=== PATIENT | male | born 1935 | race Caucasian/White ===

== ENCOUNTER 2017-10-30 09:55 | Inpatient (IN) | payer MEDICARE, OTHER ==
[~2017-10-30] VITALS: Ht 180.3 cm; Wt 92.7 kg
[~2017-10-30 09:55] MED LIST: ALBU8HFA PO; ATEN25TA PO; CIPR-230 PO; DABI150C PO; FINA5TAB11 PO; FOLI1TAB16 PO; GLIP5TAB13 PO; HYDR-569 PO; ISOS60TA4 PO; LOPE2CAP PO; MESA0.37 PO; OMEP20CA10 PO; TERA2CAP4 PO
[2017-10-30 10:12] LABS: BASOPHILS % (AUTO) 0.4 % (0-1); EOSINOPHILS # (AUTO) 0.4 X10'3 (0-0.9); EOSINOPHILS % (AUTO) 4.1 % (0-6); HEMATOCRIT 43.5 % (42.0-52.0); HEMOGLOBIN 14.6 g/dl (14.0-17.9); LYMPHOCYTES # (AUTO) 2.2 X10'3 (1.1-4.8); LYMPHOCYTES % (AUTO) 20.3 % (21-51); MEAN CORPUSCULAR HEMOGLOBIN 31.8 PG (27.0-31.0); MEAN CORPUSCULAR HGB CONC 33.5 % (33.0-36.5); MEAN CORPUSCULAR VOLUME 94.8 FL (78-98); MEAN PLATELET VOLUME 8.1 FL (7.4-10.4); MONOCYTES # (AUTO) 0.8 X10'3 (0-0.9); MONOCYTES % (AUTO) 7.8 % (2-12); NEUTROPHILS # (AUTO) 7.2 X10'3 (1.8-7.7); NEUTROPHILS % (AUTO) 67.4 % (42-75); PLATELET COUNT 242 X10'3 (140-440); RED BLOOD COUNT 4.59 X10'6 (4.70-6.10); RED CELL DISTRIBUTION WIDTH 15.5 % (11.5-14.5); WHITE BLOOD COUNT 10.7 X10'3 (4.5-11.0)
[2017-10-30 10:23] LABS: PARTIAL THROMBOPLASTIN TIME 30 SECONDS (22-32); PROTHROMBIN TIME 10.7 SECONDS (9.0-12.0)
[2017-10-30 10:28] LABS: ALANINE AMINOTRANSFERASE 14 U/L (12-78); ALBUMIN 3.4 G/DL (3.4-5.0); ALBUMIN/GLOBULIN RATIO 0.9 (1.1-1.5); ALKALINE PHOSPHATASE 97 IU/L (46-116); ANION GAP 8 (8-16); ASPARTATE AMINO TRANSFERASE 14 U/L (10-37); BILIRUBIN,TOTAL 0.5 MG/DL (0.1-1.0); BLOOD UREA NITROGEN 13 MG/DL (7-18); BUN/CREATININE RATIO 15.3 (5.4-32.0); CALCIUM 8.7 MG/DL (8.5-10.1); CHLORIDE 109 MMOL/L (99-107); CREATININE 0.85 MG/DL (0.60-1.10); GLUCOSE 131 MG/DL (70-104); SODIUM 142 MMOL/L (135-145); TOTAL CARBON DIOXIDE 25.3 MMOL/L (24-32); TOTAL PROTEIN 7.1 G/DL (6.4-8.2); eGFR 86 ML/MIN
[2017-10-30] MEDS ORDERED: acetaminophen 325mg tablet PO PRN ×2 (11:10)
[2017-10-30] MEDS ORDERED: magnesium 2GM in 50ml NS 50 ML IV PRN (11:10)
[2017-10-30] MEDS ORDERED: magnesium 4gm in 100ml NS 100 ML IV PRN (11:10)
[2017-10-30] MEDS ORDERED: mag hydrox/Alum hydrox/simeth 30ml oral suspension PO PRN (11:10)
[2017-10-30] MEDS ORDERED: potassium Cl 40MEQ/NS 500ml 500 ML IV PRN ×2 (11:10)
[2017-10-30] MEDS ORDERED: bisacodyl 10mg suppository rectal RC PRN (11:10)
[2017-10-30] MEDS ORDERED: ondansetron/PF 4mg/2ml inj IV PRN (11:10)
[2017-10-30] MEDS ORDERED: potassium Cl 20 mEq SR tablet PO PRN ×2 (11:10)
[2017-10-30] MEDS ORDERED: regadenoson 0.4mg/5ml syringe IV PRN (12:10)
[2017-10-30] MEDS ORDERED: nitroGLYCERIN 0.4mg SUBLingual tab SL PRN (12:10)
[2017-10-30] MEDS ORDERED: CAFFEINE CITRATE 60 MG/3 ML injection vial IV PRN (12:10)
[2017-10-30] MEDS ORDERED: metoprolol tartrate 1mg/ml inj IV PRN (12:10)
[2017-10-30] MEDS ORDERED: dextrose ORAL solution 15 GM/59 ML bottle PO PRN ×2 (12:30)
[2017-10-30] MEDS ORDERED: insulin Lispro (HumaLOG) vial - multi-dose SQ SCH (12:30)
[2017-10-30] MEDS ORDERED: MESSAGE TO PHARMACY PO ONE (12:30)
[2017-10-30] MEDS ORDERED: dextrose 50%-water 50ml dispensing syringe IV PRN ×2 (12:30)
[2017-10-30] MEDS ORDERED: glucagon, human recombinant 1mg kit SUBCUT PRN (12:30)
[2017-10-30 13:31] LABS: HEMOGLOBIN A1C 6.2 % (4.5-6.2)
[2017-10-30] MEDS ORDERED: nitroGLYCERIN 1gm ointment UD TP ONE (18:05)
[2017-10-30] MEDS ORDERED: heparin 10,000 units/1 ML INJ IV ONE (18:15)
[2017-10-30] MEDS ORDERED: heparin 10,000 units/1 ML INJ IV PRN ×2 (18:15→23:20)
[2017-10-30] MEDS ORDERED: dabigatran 150mg capsule PO SCH (20:00)
[2017-10-30] MEDS: insulin glargine (Lantus) pen - multi-dose SQ SCH (21:00)
[2017-10-30] MEDS: Terazosin 1mg capsule PO SCH (21:19)
[2017-10-30 22:00] VITALS: BP 128/99
[2017-10-30] MEDS ORDERED: clopidogrel 300mg tablet PO ONE (23:10)
[2017-10-31] VITALS (14 sets, daily range): BP systolic 105–141; BP diastolic 53–88
[2017-10-31] MEDS ORDERED: clopidogrel 75mg tablet PO SCH (00:40)
[2017-10-31 04:35] LABS: BASOPHILS % (AUTO) 0.4 % (0-1); EOSINOPHILS # (AUTO) 0.4 X10'3 (0-0.9); EOSINOPHILS % (AUTO) 4.4 % (0-6); HEMATOCRIT 39.2 % (42.0-52.0); HEMOGLOBIN 13.3 g/dl (14.0-17.9); LYMPHOCYTES # (AUTO) 2.6 X10'3 (1.1-4.8); LYMPHOCYTES % (AUTO) 27.8 % (21-51); MEAN CORPUSCULAR HGB CONC 33.9 % (33.0-36.5); MEAN CORPUSCULAR VOLUME 94.3 FL (78-98); MEAN PLATELET VOLUME 8.1 FL (7.4-10.4); MONOCYTES # (AUTO) 0.7 X10'3 (0-0.9); MONOCYTES % (AUTO) 7.3 % (2-12); NEUTROPHILS # (AUTO) 5.7 X10'3 (1.8-7.7); NEUTROPHILS % (AUTO) 60.1 % (42-75); PLATELET COUNT 225 X10'3 (140-440); RED BLOOD COUNT 4.16 X10'6 (4.70-6.10); RED CELL DISTRIBUTION WIDTH 15.2 % (11.5-14.5); WHITE BLOOD COUNT 9.5 X10'3 (4.5-11.0)
[2017-10-31 04:51] LABS: ALANINE AMINOTRANSFERASE 14 U/L (12-78); ALBUMIN/GLOBULIN RATIO 0.9 (1.1-1.5); ALKALINE PHOSPHATASE 80 IU/L (46-116); ANION GAP 10 (8-16); ASPARTATE AMINO TRANSFERASE 21 U/L (10-37); BILIRUBIN,TOTAL 0.6 MG/DL (0.1-1.0); BLOOD UREA NITROGEN 13 MG/DL (7-18); BUN/CREATININE RATIO 14.9 (5.4-32.0); CALCIUM 8.2 MG/DL (8.5-10.1); CHLORIDE 107 MMOL/L (99-107); CHOL/HDL RATIO 2.9 (0.00-4.99); CHOLESTEROL 145 MG/DL (0-200); CREATININE 0.87 MG/DL (0.60-1.10); GLUCOSE 111 MG/DL (70-104); HDL CHOLESTEROL 50 MG/DL (35-60); LDL CHOLESTEROL 82 MG/DL (50-100); POTASSIUM 3.6 MMOL/L (3.5-5.1); SODIUM 141 MMOL/L (135-145); TOTAL CARBON DIOXIDE 24.4 MMOL/L (24-32); TOTAL PROTEIN 6.5 G/DL (6.4-8.2); TRIGLYCERIDES 83 MG/DL (20-135); eGFR 84 ML/MIN
[2017-10-31 05:48] LABS: TROPONIN I 1.84 NG/ML (0.0-0.05)
[2017-10-31] MEDS: isosorbide mononitrate 30mg tab.SR.24H PO SCH (07:19)
[2017-10-31] MEDS: finasteride 5mg tablet PO SCH (07:19)
[2017-10-31] MEDS: atenolol 25mg tablet PO SCH (07:19)
[2017-10-31] MEDS: pantoprazole 40mg Tablet.DR PO SCH (07:19)
[2017-10-31] MEDS: folic acid 1mg tablet PO SCH (07:19)
[2017-10-31] MEDS: mesalamine 400mg delayed-release capsule PO SCH (07:19)
[2017-10-31] MEDS: K and/or MAG REPLACEMENT MC SCH (08:00)
[2017-10-31] MEDS ORDERED: regadenoson 0.4mg/5ml syringe IV ONE (09:09)
[2017-10-31] MEDS ORDERED: CAFFEINE CITRATE 60 MG/3 ML injection vial IV ONE (09:09)
[2017-10-31 15:41] LABS: TROPONIN I 0.94 NG/ML (0.0-0.05)
[2017-10-31] MEDS: insulin glargine (Lantus) pen - multi-dose SQ SCH (21:00)
[2017-10-31] MEDS: Terazosin 1mg capsule PO SCH (21:17)
[2017-11-01 01:54] LABS: BASOPHILS % (AUTO) 0.5 % (0-1); EOSINOPHILS # (AUTO) 0.4 X10'3 (0-0.9); EOSINOPHILS % (AUTO) 4.9 % (0-6); HEMATOCRIT 40.7 % (42.0-52.0); HEMOGLOBIN 13.7 g/dl (14.0-17.9); LYMPHOCYTES # (AUTO) 2.6 X10'3 (1.1-4.8); LYMPHOCYTES % (AUTO) 29.9 % (21-51); MEAN CORPUSCULAR HGB CONC 33.7 % (33.0-36.5); MEAN PLATELET VOLUME 8.6 FL (7.4-10.4); MONOCYTES # (AUTO) 0.6 X10'3 (0-0.9); MONOCYTES % (AUTO) 7.1 % (2-12); NEUTROPHILS % (AUTO) 57.6 % (42-75); PLATELET COUNT 245 X10'3 (140-440); RED BLOOD COUNT 4.29 X10'6 (4.70-6.10); RED CELL DISTRIBUTION WIDTH 14.9 % (11.5-14.5); WHITE BLOOD COUNT 8.6 X10'3 (4.5-11.0)
[2017-11-01 01:59] LABS: ALANINE AMINOTRANSFERASE 14 U/L (12-78); ALBUMIN 3.1 G/DL (3.4-5.0); ALBUMIN/GLOBULIN RATIO 0.9 (1.1-1.5); ALKALINE PHOSPHATASE 82 IU/L (46-116); ANION GAP 9 (8-16); ASPARTATE AMINO TRANSFERASE 23 U/L (10-37); BILIRUBIN,TOTAL 0.5 MG/DL (0.1-1.0); BLOOD UREA NITROGEN 12 MG/DL (7-18); CALCIUM 8.3 MG/DL (8.5-10.1); CHLORIDE 106 MMOL/L (99-107); GLUCOSE 99 MG/DL (70-104); PHOSPHORUS 2.7 MG/DL (2.3-4.5); POTASSIUM 3.7 MMOL/L (3.5-5.1); SODIUM 142 MMOL/L (135-145); TOTAL CARBON DIOXIDE 26.8 MMOL/L (24-32); TOTAL PROTEIN 6.7 G/DL (6.4-8.2); eGFR > 90 ML/MIN
[2017-11-01 03:00] VITALS: BP 142/83
[2017-11-01] MEDS: K and/or MAG REPLACEMENT MC SCH (06:54)
[2017-11-01 07:00] VITALS: BP 138/75
[2017-11-01] MEDS: mesalamine 400mg delayed-release capsule PO SCH (07:22)
[2017-11-01] MEDS: finasteride 5mg tablet PO SCH (07:23)
[2017-11-01] MEDS: atenolol 25mg tablet PO SCH (07:23)
[2017-11-01] MEDS: isosorbide mononitrate 30mg tab.SR.24H PO SCH (07:23)
[2017-11-01] MEDS: pantoprazole 40mg Tablet.DR PO SCH (07:23)
[2017-11-01] MEDS: folic acid 1mg tablet PO SCH (07:23)
[2017-11-01] MEDS ORDERED: atorvastatin 20mg tablet PO SCH (08:00)
[2017-11-01 11:00] VITALS: BP 117/64
== END 2017-11-01 15:15 | disposition home health service (06) | DRG 303 ==
LOC: ER 09:55 → ED HOLD 11:07 → EDBEDREQ 21:32 → PCU 3S 22:14
PROVIDERS: ADMIT Family Medicine; ATTEND Internal Medicine
PROC: 4A02XM4 Measurement of Cardiac Total Activity, External Approach (ICD-10-PCS; principal; 2017-10-31)
PROC: 3E073KZ Introduction of Other Diagnostic Substance into Coronary Artery, Percutaneous Approach (ICD-10-PCS; 2017-10-31)
DX: I25.110 Atherosclerotic heart disease of native coronary artery with unstable angina pectoris (principal); E11.51 Type 2 diabetes mellitus with diabetic peripheral angiopathy without gangrene; I24.9 Acute ischemic heart disease, unspecified; K50.90 Crohn's disease, unspecified, without complications; I48.2 Chronic atrial fibrillation; I25.2 Old myocardial infarction; H26.9 Unspecified cataract; I10 Essential (primary) hypertension; E11.9 Type 2 diabetes mellitus without complications; J44.9 Chronic obstructive pulmonary disease, unspecified; Z80.0 Family history of malignant neoplasm of digestive organs; Z82.0 Family history of epilepsy and other diseases of the nervous system; Z87.891 Personal history of nicotine dependence; Z95.5 Presence of coronary angioplasty implant and graft
CPT/HCPCS: 36415; 71045; 78452; 80053; 80061; 82553; 82948; 83036; 83735; 84100; 84484; 85025; 85610; 85730; 87070; 93005; 93017; 93306; 97116; 97161; 97530; 99285; A9500; J1644; J1815

== ENCOUNTER 2017-11-07 17:22 | Emergency (ER) | payer MEDICARE, OTHER ==
[~2017-11-07] VITALS: Ht 180.3 cm; Wt 98.0 kg
[~2017-11-07 17:22] MED LIST changes: -CIPR-230 PO; -GLIP5TAB13 PO
[2017-11-07 19:16] LABS: BASOPHILS # (AUTO) 0.1 X10'3 (0-0.2); BASOPHILS % (AUTO) 0.7 % (0-1); EOSINOPHILS # (AUTO) 0.4 X10'3 (0-0.9); EOSINOPHILS % (AUTO) 5.4 % (0-6); HEMATOCRIT 43.3 % (42.0-52.0); HEMOGLOBIN 14.5 g/dl (14.0-17.9); LYMPHOCYTES # (AUTO) 2.6 X10'3 (1.1-4.8); LYMPHOCYTES % (AUTO) 37.2 % (21-51); MEAN CORPUSCULAR HEMOGLOBIN 31.8 PG (27.0-31.0); MEAN CORPUSCULAR HGB CONC 33.4 % (33.0-36.5); MEAN CORPUSCULAR VOLUME 95.3 FL (78-98); MEAN PLATELET VOLUME 7.7 FL (7.4-10.4); MONOCYTES # (AUTO) 0.6 X10'3 (0-0.9); MONOCYTES % (AUTO) 7.9 % (2-12); NEUTROPHILS # (AUTO) 3.4 X10'3 (1.8-7.7); NEUTROPHILS % (AUTO) 48.8 % (42-75); PLATELET COUNT 269 X10'3 (140-440); RED BLOOD COUNT 4.55 X10'6 (4.70-6.10)
[2017-11-07 19:26] LABS: INR 1.1 INR; PARTIAL THROMBOPLASTIN TIME 32 SECONDS (22-32); PROTHROMBIN TIME 11.3 SECONDS (9.0-12.0)
[2017-11-07 19:33] LABS: ANION GAP 6 (8-16); BLOOD UREA NITROGEN 10 MG/DL (7-18); BUN/CREATININE RATIO 11.1 (5.4-32.0); CHLORIDE 107 MMOL/L (99-107); GLUCOSE 105 MG/DL (70-104); POTASSIUM 3.8 MMOL/L (3.5-5.1); SODIUM 143 MMOL/L (135-145); TOTAL CARBON DIOXIDE 30.2 MMOL/L (24-32)
[2017-11-07 19:34] LABS: ALANINE AMINOTRANSFERASE 19 U/L (12-78); ALBUMIN 3.6 G/DL (3.4-5.0); ALBUMIN/GLOBULIN RATIO 0.9 (1.1-1.5); ALKALINE PHOSPHATASE 84 IU/L (46-116); ASPARTATE AMINO TRANSFERASE 20 U/L (10-37); BILIRUBIN,TOTAL 0.4 MG/DL (0.1-1.0); CALCIUM 9.2 MG/DL (8.5-10.1); TOTAL PROTEIN 7.7 G/DL (6.4-8.2); eGFR 81 ML/MIN
[2017-11-07 21:02] VITALS: BP 138/80
== END 2017-11-07 21:19 | disposition home or self-care (01) ==
LOC: ER 17:23
DX: I83.91 Asymptomatic varicose veins of right lower extremity (principal); I48.91 Unspecified atrial fibrillation; I25.10 Atherosclerotic heart disease of native coronary artery without angina pectoris; I10 Essential (primary) hypertension; I25.2 Old myocardial infarction; E11.9 Type 2 diabetes mellitus without complications; J44.9 Chronic obstructive pulmonary disease, unspecified; F17.210 Nicotine dependence, cigarettes, uncomplicated; Z95.0 Presence of cardiac pacemaker; Z79.899 Other long term (current) drug therapy
CPT/HCPCS: 36415; 80053; 85025; 85610; 85730; 93971; 99285

== ENCOUNTER 2018-02-25 16:25 | Inpatient (IN) | payer MEDICARE, OTHER ==
[~2018-02-25] VITALS: Ht 180.3 cm; Wt 91.8 kg
[2018-02-25] MEDS ORDERED: normal saline 1000ML IV soln IVB ONE (16:55)
[2018-02-25] MEDS ORDERED: methylnaltrexone br 12mg/0.6ml inj***SubQ only SQ ONE (16:55)
[2018-02-25 17:25] LABS: BASOPHILS % (AUTO) 0.2 % (0-1); EOSINOPHILS # (AUTO) 0.2 X10'3 (0-0.9); EOSINOPHILS % (AUTO) 1.4 % (0-6); HEMATOCRIT 47.5 % (42.0-52.0); HEMOGLOBIN 15.5 g/dl (14.0-17.9); LYMPHOCYTES # (AUTO) 1.4 X10'3 (1.1-4.8); LYMPHOCYTES % (AUTO) 10.3 % (21-51); MEAN CORPUSCULAR HEMOGLOBIN 30.8 PG (27.0-31.0); MEAN CORPUSCULAR HGB CONC 32.7 % (33.0-36.5); MEAN CORPUSCULAR VOLUME 94.3 FL (78-98); MEAN PLATELET VOLUME 8.5 FL (7.4-10.4); MONOCYTES # (AUTO) 0.5 X10'3 (0-0.9); MONOCYTES % (AUTO) 3.5 % (2-12); NEUTROPHILS # (AUTO) 11.4 X10'3 (1.8-7.7); NEUTROPHILS % (AUTO) 84.6 % (42-75); PLATELET COUNT 231 X10'3 (140-440); RED BLOOD COUNT 5.04 X10'6 (4.70-6.10); WHITE BLOOD COUNT 13.4 X10'3 (4.5-11.0)
[2018-02-25 17:40] LABS: ALANINE AMINOTRANSFERASE 28 U/L (12-78); ALBUMIN 3.8 G/DL (3.4-5.0); ALKALINE PHOSPHATASE 103 IU/L (46-116); ANION GAP 8 (8-16); ASPARTATE AMINO TRANSFERASE 25 U/L (10-37); BILIRUBIN,TOTAL 0.6 MG/DL (0.1-1.0); BLOOD UREA NITROGEN 20 MG/DL (7-18); BUN/CREATININE RATIO 19.6 (5.4-32.0); CALCIUM 9.4 MG/DL (8.5-10.1); CHLORIDE 105 MMOL/L (99-107); CREATININE 1.02 MG/DL (0.60-1.10); GLUCOSE 137 MG/DL (70-104); LIPASE 144 U/L (73-393); POTASSIUM 3.8 MMOL/L (3.5-5.1); SODIUM 141 MMOL/L (135-145); TOTAL CARBON DIOXIDE 27.8 MMOL/L (24-32); TOTAL PROTEIN 7.7 G/DL (6.4-8.2); eGFR 70 ML/MIN
[2018-02-25] MEDS ORDERED: iohexol 300mg/ml 100ml inj. ONE (17:45)
[2018-02-25 18:43] LABS: CLARITY,URINE CLEAR (Clear); COLOR,URINE YELLOW (Yellow); GLUCOSE, URINE NEGATIVE (Neg); KETONES,URINE NEGATIVE (Neg); LEUKOCYTE ESTERASE ,URINE NEGATIVE (Neg); NITRITES, URINE NEGATIVE (Neg); OCCULT BLOOD,URINE SMALL (Neg); PROTEIN,URINE TRACE mg/dl (Neg); UROBILINOGEN,URINE 0.2 E.U/dL (0.2-1.0)
[2018-02-25 18:49] LABS: UA COLLECTION TYPE URINAL
[2018-02-25 18:50] LABS: BACTERIA,URINE FEW /HPF (Neg); RBC,URINE 0-2 /HPF (0-2); SQUAMOUS EPITHELIAL CELL,UR FEW /LPF (FEW); WBC,URINE NONE SEEN /HPF (0-4)
[2018-02-25] MEDS ORDERED: levoFLOXACIN-Levaquin 750MG/D5 150 ML IV ONE (18:50)
[2018-02-25] MEDS ORDERED: metroNIDAZOLE-Flagyl 500mg/NS 100 ML IV ONE (18:50)
[2018-02-25] MEDS ORDERED: morphine 4 MG/ML inj SYRINge IV ONE (20:00)
[2018-02-25] MEDS ORDERED: ondansetron/PF 4mg/2ml inj IV ONE (20:00)
[2018-02-25] MEDS: potassium cl 20mEq in 1/2 NS 1,000 ML IV SCH (20:43)
[2018-02-25] MEDS ORDERED: diphenhydrAMINE 25mg capsule PO PRN (20:45)
[2018-02-25] MEDS ORDERED: magnesium hydroxide 30ml (MOM) UD suspension PO PRN (20:45)
[2018-02-25] MEDS ORDERED: ondansetron/PF 4mg/2ml inj IV PRN (20:45)
[2018-02-25] MEDS ORDERED: mag hydrox/Alum hydrox/simeth 30ml oral suspension PO PRN (20:45)
[2018-02-25] MEDS ORDERED: diphenhydrAMINE 50 mg/ml inj IV PRN (20:45)
[2018-02-25] MEDS ORDERED: HYDROcodone/acetaminophen 5mg/325mg tablet PO PRN (20:45)
[2018-02-25] MEDS ORDERED: metoclopramide 5 mg/ml inj IV PRN (20:45)
[2018-02-25] MEDS ORDERED: HYDROmorphone inj. 0.5 MG/0.5 ML DISP.SYRIN IV PRN ×2 (20:45)
[2018-02-25] MEDS ORDERED: bisacodyl 10mg suppository rectal RC PRN (20:45)
[2018-02-25] MEDS ORDERED: morphine 2 MG/ML inj. syringe IV PRN ×2 (20:45)
[2018-02-25] MEDS ORDERED: acetaminophen 325mg tablet PO PRN ×2 (20:45)
[2018-02-25] MEDS ORDERED: HYDROcodone/acetaminophen 10/325mg tab PO PRN (20:45)
[2018-02-25] MEDS ORDERED: lactulose 20gm/30ml cup PO ONE (20:50)
[2018-02-25] MEDS ORDERED: polyethylene glycol 3350 17gm powd pack PO ONE (20:50)
[2018-02-25] MEDS ORDERED: magnesium hydroxide 30ml (MOM) UD suspension PO ONE (20:50)
[2018-02-25] MEDS ORDERED: temazepam 15mg capsule PO PRN (21:00)
[2018-02-25 21:22] LABS: HEMOGLOBIN A1C 6.3 % (4.5-6.2)
[2018-02-25 21:27] LABS: C-REACTIVE PROTEIN 0.08 MG/DL (0.0-0.5); MAGNESIUM 2.6 MG/DL (1.5-2.4); PHOSPHORUS 3.5 MG/DL (2.3-4.5)
[2018-02-25 23:28] LABS: INR 1.1 INR; PARTIAL THROMBOPLASTIN TIME 29 SECONDS (22-32); PROTHROMBIN TIME 11.8 SECONDS (9.0-12.0)
[2018-02-25 23:35] VITALS: BP 133/68
[2018-02-26] MEDS: piperacillin/tazo 4.5gm/100ml 100 ML IV SCH ×3 (00:21→16:17)
[2018-02-26 01:59] LABS: ALANINE AMINOTRANSFERASE 26 U/L (12-78); ALBUMIN 3.2 G/DL (3.4-5.0); ALKALINE PHOSPHATASE 88 IU/L (46-116); ANION GAP 9 (8-16); ASPARTATE AMINO TRANSFERASE 24 U/L (10-37); BILIRUBIN,TOTAL 0.7 MG/DL (0.1-1.0); BLOOD UREA NITROGEN 20 MG/DL (7-18); BUN/CREATININE RATIO 20.8 (5.4-32.0); CALCIUM 8.2 MG/DL (8.5-10.1); CHLORIDE 106 MMOL/L (99-107); CREATININE 0.96 MG/DL (0.60-1.10); GLUCOSE 113 MG/DL (70-104); POTASSIUM 3.6 MMOL/L (3.5-5.1); SODIUM 142 MMOL/L (135-145); TOTAL CARBON DIOXIDE 26.9 MMOL/L (24-32); TOTAL PROTEIN 6.4 G/DL (6.4-8.2); eGFR 75 ML/MIN
[2018-02-26 02:15] LABS: BASOPHILS % (AUTO) 0.2 % (0-1); EOSINOPHILS # (AUTO) 0.1 X10'3 (0-0.9); HEMATOCRIT 41.3 % (42.0-52.0); HEMOGLOBIN 13.8 g/dl (14.0-17.9); LYMPHOCYTES % (AUTO) 18.2 % (21-51); MEAN CORPUSCULAR HEMOGLOBIN 31.5 PG (27.0-31.0); MEAN CORPUSCULAR HGB CONC 33.5 % (33.0-36.5); MEAN CORPUSCULAR VOLUME 94.1 FL (78-98); MEAN PLATELET VOLUME 8.9 FL (7.4-10.4); MONOCYTES # (AUTO) 0.7 X10'3 (0-0.9); MONOCYTES % (AUTO) 6.5 % (2-12); NEUTROPHILS # (AUTO) 8.2 X10'3 (1.8-7.7); NEUTROPHILS % (AUTO) 74.1 % (42-75); PLATELET COUNT 196 X10'3 (140-440); RED BLOOD COUNT 4.38 X10'6 (4.70-6.10); RED CELL DISTRIBUTION WIDTH 15.1 % (11.5-14.5)
[2018-02-26 07:05] VITALS: BP 123/84
[2018-02-26] MEDS: pantoprazole 40 MG vial IV SCH ×2 (07:35→20:22)
[2018-02-26] MEDS: potassium cl 20mEq in 1/2 NS 1,000 ML IV SCH ×3 (07:35→23:07)
[2018-02-26] MEDS: docusate sod 100mg capsule PO SCH ×2 (08:00→20:00)
[2018-02-26] MEDS ORDERED: FOLI1TAB16 PO (08:37)
[2018-02-26 12:00] VITALS: BP 102/69
[2018-02-26] MEDS ORDERED: loperamide 2mg capsule PO SCH (14:00)
[2018-02-26] MEDS: metroNIDAZOLE-Flagyl 500mg/NS 100 ML IV SCH (17:29)
[2018-02-26 18:00] VITALS: BP 112/72
[2018-02-26] MEDS ORDERED: non-formulary drug (Omeprazole 1 CAP) PO SCH (20:00)
[2018-02-26] MEDS: pantoprazole 40mg Tablet.DR PO SCH (20:00)
[2018-02-26] MEDS: levoFLOXACIN-Levaquin 750MG/D5 150 ML IV SCH (20:22)
[2018-02-26 20:47] LABS: OCCULT BLOOD STOOL NEGATIVE (Neg)
[2018-02-27] VITALS: BP 124/69
[2018-02-27] MEDS: metroNIDAZOLE-Flagyl 500mg/NS 100 ML IV SCH ×4 (00:10→23:44)
[2018-02-27 07:00] VITALS: BP 134/68
[2018-02-27 07:12] LABS: BASOPHILS % (AUTO) 0.7 % (0-1); EOSINOPHILS # (AUTO) 0.3 X10'3 (0-0.9); EOSINOPHILS % (AUTO) 4.8 % (0-6); HEMATOCRIT 38.4 % (42.0-52.0); HEMOGLOBIN 13.2 g/dl (14.0-17.9); LYMPHOCYTES # (AUTO) 2.2 X10'3 (1.1-4.8); LYMPHOCYTES % (AUTO) 32.5 % (21-51); MEAN CORPUSCULAR HEMOGLOBIN 32.2 PG (27.0-31.0); MEAN CORPUSCULAR HGB CONC 34.4 % (33.0-36.5); MEAN CORPUSCULAR VOLUME 93.7 FL (78-98); MEAN PLATELET VOLUME 8.5 FL (7.4-10.4); MONOCYTES # (AUTO) 0.6 X10'3 (0-0.9); MONOCYTES % (AUTO) 8.7 % (2-12); NEUTROPHILS # (AUTO) 3.6 X10'3 (1.8-7.7); NEUTROPHILS % (AUTO) 53.3 % (42-75); PLATELET COUNT 175 X10'3 (140-440); RED CELL DISTRIBUTION WIDTH 15.7 % (11.5-14.5); WHITE BLOOD COUNT 6.8 X10'3 (4.5-11.0)
[2018-02-27 07:47] LABS: ALANINE AMINOTRANSFERASE 24 U/L (12-78); ALKALINE PHOSPHATASE 79 IU/L (46-116); ANION GAP 7 (8-16); ASPARTATE AMINO TRANSFERASE 21 U/L (10-37); BILIRUBIN,TOTAL 0.8 MG/DL (0.1-1.0); BLOOD UREA NITROGEN 9 MG/DL (7-18); BUN/CREATININE RATIO 9.8 (5.4-32.0); CALCIUM 7.9 MG/DL (8.5-10.1); CHLORIDE 109 MMOL/L (99-107); CREATININE 0.92 MG/DL (0.60-1.10); GLUCOSE 98 MG/DL (70-104); POTASSIUM 3.7 MMOL/L (3.5-5.1); SODIUM 142 MMOL/L (135-145); TOTAL CARBON DIOXIDE 26.3 MMOL/L (24-32); TOTAL PROTEIN 6.1 G/DL (6.4-8.2); eGFR 78 ML/MIN
[2018-02-27] MEDS: APRISO 0.375 GM PO SCH (08:00)
[2018-02-27] MEDS ORDERED: MESALAMINE PO SCH (08:00)
[2018-02-27] MEDS ORDERED: non-formulary drug (Isosorbide Mononitrate (Isosorbide Mononitrate Er) 1 TAB) PO SCH (08:00)
[2018-02-27] MEDS: docusate sod 100mg capsule PO SCH ×2 (08:00→20:00)
[2018-02-27] MEDS: pantoprazole 40 MG vial IV SCH (08:00)
[2018-02-27] MEDS: pantoprazole 40mg Tablet.DR PO SCH ×2 (08:01→20:00)
[2018-02-27] MEDS: isosorbide mononitrate 30mg tab.SR.24H PO SCH (08:01)
[2018-02-27] MEDS: atenolol 25mg tablet PO SCH (08:01)
[2018-02-27] MEDS: levoFLOXACIN-Levaquin 750MG/D5 150 ML IV SCH (09:19)
[2018-02-27] MEDS: potassium cl 20mEq in 1/2 NS 1,000 ML IV SCH (11:31)
[2018-02-27 11:59] VITALS: BP 109/74
[2018-02-27 20:00] VITALS: BP 137/74
[2018-02-27] MEDS: lactobacillus rhamnosus 10,000 MMU CELLS/CAPSULE PO SCH (20:01)
[2018-02-28] VITALS: BP 133/82
[2018-02-28 05:18] LABS: BASOPHILS % (AUTO) 0.5 % (0-1); EOSINOPHILS # (AUTO) 0.4 X10'3 (0-0.9); EOSINOPHILS % (AUTO) 5.3 % (0-6); HEMATOCRIT 39.4 % (42.0-52.0); HEMOGLOBIN 13.2 g/dl (14.0-17.9); LYMPHOCYTES # (AUTO) 2.2 X10'3 (1.1-4.8); MEAN CORPUSCULAR HEMOGLOBIN 31.5 PG (27.0-31.0); MEAN CORPUSCULAR HGB CONC 33.4 % (33.0-36.5); MEAN CORPUSCULAR VOLUME 94.5 FL (78-98); MEAN PLATELET VOLUME 8.3 FL (7.4-10.4); MONOCYTES # (AUTO) 0.6 X10'3 (0-0.9); MONOCYTES % (AUTO) 9.2 % (2-12); NEUTROPHILS # (AUTO) 3.5 X10'3 (1.8-7.7); PLATELET COUNT 171 X10'3 (140-440); RED BLOOD COUNT 4.17 X10'6 (4.70-6.10); RED CELL DISTRIBUTION WIDTH 15.3 % (11.5-14.5); WHITE BLOOD COUNT 6.7 X10'3 (4.5-11.0)
[2018-02-28 05:33] LABS: ALANINE AMINOTRANSFERASE 21 U/L (12-78); ALBUMIN 3.1 G/DL (3.4-5.0); ALKALINE PHOSPHATASE 76 IU/L (46-116); ANION GAP 11 (8-16); ASPARTATE AMINO TRANSFERASE 29 U/L (10-37); BILIRUBIN,TOTAL 0.8 MG/DL (0.1-1.0); BLOOD UREA NITROGEN 6 MG/DL (7-18); BUN/CREATININE RATIO 6.5 (5.4-32.0); CALCIUM 8.5 MG/DL (8.5-10.1); CHLORIDE 107 MMOL/L (99-107); CREATININE 0.92 MG/DL (0.60-1.10); GLUCOSE 94 MG/DL (70-104); POTASSIUM 3.4 MMOL/L (3.5-5.1); SODIUM 142 MMOL/L (135-145); TOTAL PROTEIN 6.2 G/DL (6.4-8.2); eGFR 78 ML/MIN
[2018-02-28 07:21] VITALS: BP 108/79
[2018-02-28] MEDS: metroNIDAZOLE-Flagyl 500mg/NS 100 ML IV SCH (07:40)
[2018-02-28] MEDS: docusate sod 100mg capsule PO SCH (07:40)
[2018-02-28] MEDS: lactobacillus rhamnosus 10,000 MMU CELLS/CAPSULE PO SCH (07:40)
[2018-02-28] MEDS: levoFLOXACIN-Levaquin 750MG/D5 150 ML IV SCH (07:40)
[2018-02-28] MEDS: pantoprazole 40mg Tablet.DR PO SCH (07:40)
[2018-02-28] MEDS: isosorbide mononitrate 30mg tab.SR.24H PO SCH (07:40)
[2018-02-28] MEDS: APRISO 0.375 GM PO SCH (07:45)
[2018-02-28] MEDS: atenolol 25mg tablet PO SCH (07:45)
[2018-02-28] MEDS ORDERED: potassium Cl 20 mEq SR tablet PO STA (12:20)
[2018-02-28] MEDS ORDERED: COL100C PO (12:41)
[2018-02-28] MEDS ORDERED: LEVO500T89 PO (12:41)
[2018-02-28] MEDS ORDERED: METR500T4 PO (12:41)
== END 2018-02-28 15:45 | disposition home or self-care (01) | DRG 872 ==
LOC: ER 16:26 → ED HOLD 20:43 → SUR 3N 23:32
PROVIDERS: ADMIT Family Medicine; ATTEND Family Medicine
DX: A41.9 Sepsis, unspecified organism (principal); K56.7 Ileus, unspecified; K57.32 Diverticulitis of large intestine without perforation or abscess without bleeding; I48.91 Unspecified atrial fibrillation; K64.9 Unspecified hemorrhoids; K21.9 Gastro-esophageal reflux disease without esophagitis; E11.9 Type 2 diabetes mellitus without complications; F17.210 Nicotine dependence, cigarettes, uncomplicated; G89.29 Other chronic pain; K63.89 Other specified diseases of intestine; I10 Essential (primary) hypertension; I25.10 Atherosclerotic heart disease of native coronary artery without angina pectoris; J44.9 Chronic obstructive pulmonary disease, unspecified; H26.9 Unspecified cataract; Z98.61 Coronary angioplasty status; I25.2 Old myocardial infarction; Z79.899 Other long term (current) drug therapy; Z80.0 Family history of malignant neoplasm of digestive organs; Z82.0 Family history of epilepsy and other diseases of the nervous system
CPT/HCPCS: 36415; 80053; 81001; 82272; 83036; 83605; 83690; 83735; 83880; 84100; 84145; 84484; 85025; 85610; 85651; 85730; 86140; 87040; 87070; 96361; 96365; 96372; 96375; 99285; C9113; J1956; J2270; J2405; J2543; J3490; J7030; Q9967

== ENCOUNTER 2018-04-05 13:25 | Emergency (ER) | payer MEDICARE, OTHER ==
[~2018-04-05] VITALS: Ht 180.3 cm; Wt 88.9 kg
[~2018-04-05 13:25] MED LIST changes: +COL100C PO; -FINA5TAB11 PO; +HYDR-4383 PO; -HYDR-569 PO; -TERA2CAP4 PO
[2018-04-05] MEDS ORDERED: acetaminophen 325mg tablet PO ONE (14:25)
[2018-04-05 14:48] VITALS: BP 115/71
== END 2018-04-05 14:59 | disposition home or self-care (01) ==
LOC: ER 13:25
DX: S06.0X9A Concussion with loss of consciousness of unspecified duration, initial encounter (principal); R51 Headache; I48.91 Unspecified atrial fibrillation; I10 Essential (primary) hypertension; I25.10 Atherosclerotic heart disease of native coronary artery without angina pectoris; J44.9 Chronic obstructive pulmonary disease, unspecified; E11.9 Type 2 diabetes mellitus without complications; F41.9 Anxiety disorder, unspecified; F32.9 Major depressive disorder, single episode, unspecified; K50.90 Crohn's disease, unspecified, without complications; I25.2 Old myocardial infarction; Z79.899 Other long term (current) drug therapy; Z98.62 Peripheral vascular angioplasty status; Z87.891 Personal history of nicotine dependence; W18.30XA Fall on same level, unspecified, initial encounter; Y93.89 Activity, other specified; Y92.89 Other specified places as the place of occurrence of the external cause; Y99.8 Other external cause status
CPT/HCPCS: 70450; 93005; 99284

== ENCOUNTER 2018-07-30 13:33 | Observation (INO) | payer MEDICARE, OTHER ==
[~2018-07-30] VITALS: Ht 177.8 cm; Wt 94.0 kg
[2018-07-30 14:19] LABS: BASOPHILS % (AUTO) 0.6 % (0-1); EOSINOPHILS # (AUTO) 0.4 X10'3 (0-0.9); EOSINOPHILS % (AUTO) 5.9 % (0-6); HEMATOCRIT 43.5 % (42.0-52.0); HEMOGLOBIN 14.3 g/dl (14.0-17.9); LYMPHOCYTES # (AUTO) 2.6 X10'3 (1.1-4.8); MEAN CORPUSCULAR HEMOGLOBIN 31.3 PG (27.0-31.0); MEAN CORPUSCULAR HGB CONC 32.9 g/dL (33.0-36.5); MEAN CORPUSCULAR VOLUME 95.3 FL (78-98); MEAN PLATELET VOLUME 8.1 FL (7.4-10.4); MONOCYTES # (AUTO) 0.5 X10'3 (0-0.9); NEUTROPHILS # (AUTO) 3.1 X10'3 (1.8-7.7); NEUTROPHILS % (AUTO) 46.5 % (42-75); PLATELET COUNT 229 X10'3 (140-440); RED BLOOD COUNT 4.56 X10'6 (4.70-6.10); RED CELL DISTRIBUTION WIDTH 16.3 % (11.5-14.5); WHITE BLOOD COUNT 6.7 X10'3 (4.5-11.0)
--- NOTE | 2018-07-30 14:36 | NUR ---
CP NOW 09/07,DR. SANDOVAL ORDERED NITRO X1(LAST DOSE)SINCE EMS GAVE HIM 2 DOSES [employer] GATH[employer]ER.
[2018-07-30 14:37] LABS: INR 1.1 INR; PARTIAL THROMBOPLASTIN TIME 32 SECONDS (22-32); PROTHROMBIN TIME 11.3 SECONDS (9.0-12.0)
[2018-07-30 14:38] LABS: ALANINE AMINOTRANSFERASE 23 U/L (12-78); ALBUMIN 3.5 G/DL (3.4-5.0); ALBUMIN/GLOBULIN RATIO 0.9 (1.1-1.5); ALKALINE PHOSPHATASE 103 IU/L (46-116); ANION GAP 9 (8-16); ASPARTATE AMINO TRANSFERASE 28 U/L (10-37); BILIRUBIN,TOTAL 0.5 MG/DL (0.1-1.0); BLOOD UREA NITROGEN 19 MG/DL (7-18); BUN/CREATININE RATIO 24.4 (5.4-32.0); CALCIUM 8.9 MG/DL (8.5-10.1); CHLORIDE 105 MMOL/L (99-107); CREATININE 0.78 MG/DL (0.60-1.10); GLUCOSE 105 MG/DL (70-104); SODIUM 142 MMOL/L (135-145); TOTAL CARBON DIOXIDE 28.1 MMOL/L (24-32); TOTAL PROTEIN 7.5 G/DL (6.4-8.2); eGFR > 90 ML/MIN
[2018-07-30] MEDS ORDERED: nitroGLYCERIN 0.4mg SUBLingual tab SL PRN ×3 (14:40→15:25)
[2018-07-30] MEDS ORDERED: ondansetron/PF 4mg/2ml inj IV ONE (14:40)
[2018-07-30] MEDS ORDERED: morphine 4 MG/ML inj SYRINge IV ONE (14:40)
--- NOTE | 2018-07-30 14:44 | NUR ---
DR. PARRA ORDERED TO ADMIN NITRO,IF NO RELIEVE ADMIN MORPHINE AND ZOFRAN.
--- NOTE | 2018-07-30 14:46 | NUR ---
Dr. Lima at bedside.
--- NOTE | 2018-07-30 14:46 | NUR ---
family at bedside.
[2018-07-30] MEDS ORDERED: LOPE2CAP PO (15:16)
[2018-07-30] MEDS ORDERED: ATEN-169 PO (15:16)
[2018-07-30] MEDS ORDERED: MESA0.37 PO (15:16)
[2018-07-30] MEDS ORDERED: DIAZ2TAB3 PO (15:16)
[2018-07-30] MEDS ORDERED: FLO0.4C PO (15:16)
[2018-07-30] MEDS ORDERED: ATOR20TA PO (15:16)
--- NOTE | 2018-07-30 15:18 | NUR ---
med rec completed.
[2018-07-30] MEDS ORDERED: acetaminophen 325mg tablet PO PRN (15:20)
[2018-07-30] MEDS ORDERED: HYDROcodone/acetaminophen 5mg/325mg tablet PO PRN (15:20)
[2018-07-30] MEDS ORDERED: HYDROcodone/acetaminophen 10/325mg tab PO PRN (15:20)
[2018-07-30] MEDS ORDERED: magnesium Cl slow-release 64mg tablet PO PRN (15:20)
[2018-07-30] MEDS ORDERED: magnesium hydroxide 30ml (MOM) UD suspension PO PRN (15:20)
[2018-07-30] MEDS ORDERED: magnesium 2GM in 50ml NS 50 ML IV PRN (15:20)
[2018-07-30] MEDS ORDERED: mag hydrox/Alum hydrox/simeth 30ml oral suspension PO PRN (15:20)
[2018-07-30] MEDS ORDERED: morphine 4 MG/ML inj SYRINge IV PRN ×2 (15:20)
[2018-07-30] MEDS ORDERED: magnesium 4gm in 100ml NS 100 ML IV PRN (15:20)
[2018-07-30] MEDS ORDERED: potassium Cl 20 mEq SR tablet PO PRN ×2 (15:20)
[2018-07-30] MEDS ORDERED: potassium Cl 40MEQ/NS 500ml 500 ML IV PRN ×2 (15:20)
[2018-07-30] MEDS ORDERED: bisacodyl 10mg suppository rectal RC PRN (15:20)
[2018-07-30] MEDS ORDERED: ondansetron/PF 4mg/2ml inj IV PRN (15:20)
[2018-07-30] MEDS: aspirin 81mg tablet.DR PO SCH (15:25)
[2018-07-30] MEDS ORDERED: aminophylline 250mg/10ml inj. IV PRN (15:25)
[2018-07-30] MEDS ORDERED: metoprolol tartrate 1mg/ml inj IV PRN (15:25)
[2018-07-30] MEDS ORDERED: regadenoson 0.4mg/5ml syringe IV ONE (15:25)
--- NOTE | 2018-07-30 16:22 | NUR ---
TEST DEPARTMENT HELPER AT BEDSIDE.
--- NOTE | 2018-07-30 16:38 | NUR ---
ATTEMPTED TO CALL REPORT TO EDGAR RN NOT AVAILABLE,WILL CALL ED RN BACK.
[2018-07-30] MEDS: isosorbide mononitrate 30mg tab.SR.24H PO SCH (17:08)
[2018-07-30] MEDS: pantoprazole 40 MG vial IV SCH ×2 (17:09→20:15)
--- NOTE | 2018-07-30 17:30 | NUR ---
Patient in room ALDO 354. I have received report from Praful MARRERO and had the opportunity to ask questions and assume patient care.
--- NOTE | 2018-07-30 18:30 | NUR ---
Problems reprioritized. Patient report given, questions answered & plan of care reviewed with Iam MARRERO.
--- NOTE | 2018-07-30 18:31 | NUR ---
Patient in room ALDO 354. I have received report from EDGAR MARRERO and had the opportunity to ask questions and assume patient care.
[2018-07-30 19:00] VITALS: BP 130/55
[2018-07-30] MEDS ORDERED: docusate sod 100mg capsule PO SCH (20:00)
[2018-07-30] MEDS: dabigatran 150mg capsule PO SCH (20:13)
[2018-07-30] MEDS: metoprolol tartrate 12.5mg (1/2 tablet) PO SCH (20:13)
[2018-07-30] MEDS: docusate sod 100mg capsule PO SCH (20:13)
[2018-07-30] MEDS: MESALAMINE 375 MG PO SCH (20:14)
[2018-07-31] VITALS (9 sets, daily range): BP systolic 94–142; BP diastolic 51–92
[2018-07-31 03:00] LABS: BASOPHILS % (AUTO) 0.4 % (0-1); EOSINOPHILS # (AUTO) 0.5 X10'3 (0-0.9); EOSINOPHILS % (AUTO) 5.3 % (0-6); HEMATOCRIT 39.6 % (42.0-52.0); HEMOGLOBIN 13.1 g/dl (14.0-17.9); LYMPHOCYTES # (AUTO) 1.6 X10'3 (1.1-4.8); LYMPHOCYTES % (AUTO) 16.4 % (21-51); MEAN CORPUSCULAR HEMOGLOBIN 31.7 PG (27.0-31.0); MEAN CORPUSCULAR HGB CONC 33.1 g/dL (33.0-36.5); MEAN CORPUSCULAR VOLUME 95.8 FL (78-98); MEAN PLATELET VOLUME 8.4 FL (7.4-10.4); MONOCYTES # (AUTO) 0.6 X10'3 (0-0.9); MONOCYTES % (AUTO) 6.3 % (2-12); NEUTROPHILS # (AUTO) 6.9 X10'3 (1.8-7.7); NEUTROPHILS % (AUTO) 71.6 % (42-75); PLATELET COUNT 183 X10'3 (140-440); RED BLOOD COUNT 4.14 X10'6 (4.70-6.10); RED CELL DISTRIBUTION WIDTH 16.1 % (11.5-14.5); WHITE BLOOD COUNT 9.6 X10'3 (4.5-11.0)
[2018-07-31 03:05] LABS: ALBUMIN 2.9 G/DL (3.4-5.0); ANION GAP 9 (8-16); BLOOD UREA NITROGEN 20 MG/DL (7-18); CALCIUM 8.1 MG/DL (8.5-10.1); CHLORIDE 107 MMOL/L (99-107); CHOL/HDL RATIO 2.1 (0.00-4.99); CHOLESTEROL 99 MG/DL (0-200); GLUCOSE 175 MG/DL (70-104); HDL CHOLESTEROL 48 MG/DL (35-60); LDL CHOLESTEROL 47 MG/DL (50-100); MAGNESIUM 1.9 MG/DL (1.5-2.4); POTASSIUM 3.7 MMOL/L (3.5-5.1); SODIUM 142 MMOL/L (135-145); TOTAL CARBON DIOXIDE 25.8 MMOL/L (24-32); TRIGLYCERIDES 70 MG/DL (20-135)
[2018-07-31 03:10] LABS: CREATININE 0.87 MG/DL (0.60-1.10); eGFR 84 ML/MIN
--- NOTE | 2018-07-31 06:15 | NUR ---
Patient in room ALDO 354. I have received report from Iam MARRERO and had the opportunity to ask questions and assume patient care. SN following, patient reported as being Darted, swabbed and Mec rec completed.
--- NOTE | 2018-07-31 06:23 | NUR ---
Problems reprioritized. Patient report given, questions answered & plan of care reviewed with VARSHA MARRERO.
[2018-07-31] MEDS ORDERED: folic acid 1mg tablet PO SCH (08:00)
[2018-07-31] MEDS ORDERED: K and/or MAG REPLACEMENT MC SCH (08:00)
[2018-07-31] MEDS ORDERED: tamsulosin 0.4mg capsule PO SCH (08:00)
[2018-07-31] MEDS ORDERED: regadenoson 0.4mg/5ml syringe IV ONE (10:27)
[2018-07-31] MEDS ORDERED: aminophylline inj. 10 ML IV ONE (10:27)
[2018-07-31] MEDS: docusate sod 100mg capsule PO SCH (12:32)
[2018-07-31] MEDS: MESALAMINE 375 MG PO SCH (12:33)
[2018-07-31] MEDS: aspirin 81mg tablet.DR PO SCH (12:33)
[2018-07-31] MEDS: isosorbide mononitrate 30mg tab.SR.24H PO SCH (12:35)
[2018-07-31] MEDS: dabigatran 150mg capsule PO SCH (12:35)
[2018-07-31] MEDS: metoprolol tartrate 12.5mg (1/2 tablet) PO SCH (12:36)
[2018-07-31] MEDS: pantoprazole 40 MG vial IV SCH (12:37)
[2018-07-31] MEDS ORDERED: ASPI-1071 PO (13:25)
[2018-07-31] MEDS ORDERED: NITR0.4T48 SL (13:25)
[2018-07-31] MEDS ORDERED: PANT-47 PO (13:25)
== END 2018-07-31 15:05 | disposition home or self-care (01) ==
LOC: ER 13:34 → ED HOLD 15:16 → SUR 3N 18:28
PROVIDERS: ADMIT Internal Medicine; ATTEND Internal Medicine
DX: R07.89 Other chest pain (principal); K21.9 Gastro-esophageal reflux disease without esophagitis; I48.91 Unspecified atrial fibrillation; I25.10 Atherosclerotic heart disease of native coronary artery without angina pectoris; I10 Essential (primary) hypertension; E78.00 Pure hypercholesterolemia, unspecified; E11.9 Type 2 diabetes mellitus without complications; I25.2 Old myocardial infarction; J44.9 Chronic obstructive pulmonary disease, unspecified; F41.9 Anxiety disorder, unspecified; F32.9 Major depressive disorder, single episode, unspecified; I35.1 Nonrheumatic aortic (valve) insufficiency; Z79.02 Long term (current) use of antithrombotics/antiplatelets; Z95.5 Presence of coronary angioplasty implant and graft; Z85.828 Personal history of other malignant neoplasm of skin; Z87.11 Personal history of peptic ulcer disease; Z90.49 Acquired absence of other specified parts of digestive tract
CPT/HCPCS: 36415; 71045; 78452; 80048; 80053; 80061; 83735; 84484; 85025; 85610; 85730; 87070; 93005; 93017; 93306; 96374; 96375; 96376; 99284; A9500; C9113; G0378; J0280; J2270; J2405

== ENCOUNTER 2018-08-02 10:48 | Emergency (ER) | payer MEDICARE, OTHER ==
[~2018-08-02] VITALS: Ht 180.3 cm; Wt 90.0 kg
[~2018-08-02 10:48] MED LIST changes: -ALBU8HFA PO; +ASPI-1071 PO; +ATEN-169 PO; -ATEN25TA PO; +ATOR20TA PO; +DIAZ2TAB3 PO; +FLO0.4C PO; -HYDR-4383 PO; -LOPE2CAP PO; +NITR0.4T48 SL; -OMEP20CA10 PO; +PANT-47 PO
[2018-08-02] MEDS ORDERED: aspirin 81mg tab.chew PO ONE (11:00)
[2018-08-02] MEDS ORDERED: famotidine 20mg tablet PO ONE (11:15)
[2018-08-02] MEDS ORDERED: LIDOcaine Viscous 15ml cup PO ONE (11:15)
[2018-08-02] MEDS ORDERED: mag hydrox/Alum hydrox/simeth 30ml oral suspension PO ONE (11:15)
[2018-08-02 11:31] LABS: BASOPHILS % (AUTO) 0.5 % (0-1); EOSINOPHILS # (AUTO) 0.2 X10'3 (0-0.9); EOSINOPHILS % (AUTO) 2.7 % (0-6); HEMATOCRIT 41.3 % (42.0-52.0); HEMOGLOBIN 13.6 g/dl (14.0-17.9); LYMPHOCYTES # (AUTO) 1.9 X10'3 (1.1-4.8); LYMPHOCYTES % (AUTO) 25.5 % (21-51); MEAN CORPUSCULAR HEMOGLOBIN 31.5 PG (27.0-31.0); MEAN CORPUSCULAR VOLUME 95.6 FL (78-98); MEAN PLATELET VOLUME 8.3 FL (7.4-10.4); MONOCYTES # (AUTO) 0.6 X10'3 (0-0.9); NEUTROPHILS # (AUTO) 4.8 X10'3 (1.8-7.7); NEUTROPHILS % (AUTO) 63.3 % (42-75); PLATELET COUNT 217 X10'3 (140-440); RED BLOOD COUNT 4.32 X10'6 (4.70-6.10); RED CELL DISTRIBUTION WIDTH 15.9 % (11.5-14.5); WHITE BLOOD COUNT 7.5 X10'3 (4.5-11.0)
[2018-08-02 11:47] LABS: ALANINE AMINOTRANSFERASE 19 U/L (12-78); ALBUMIN 3.3 G/DL (3.4-5.0); ALBUMIN/GLOBULIN RATIO 0.8 (1.1-1.5); ALKALINE PHOSPHATASE 96 IU/L (46-116); ANION GAP 8 (8-16); ASPARTATE AMINO TRANSFERASE 26 U/L (10-37); BILIRUBIN,TOTAL 0.7 MG/DL (0.1-1.0); BLOOD UREA NITROGEN 19 MG/DL (7-18); BUN/CREATININE RATIO 23.5 (5.4-32.0); CALCIUM 8.5 MG/DL (8.5-10.1); CHLORIDE 103 MMOL/L (99-107); CREATININE 0.81 MG/DL (0.60-1.10); GLUCOSE 116 MG/DL (70-104); POTASSIUM 3.9 MMOL/L (3.5-5.1); SODIUM 139 MMOL/L (135-145); TOTAL CARBON DIOXIDE 27.7 MMOL/L (24-32); TOTAL PROTEIN 7.2 G/DL (6.4-8.2); eGFR > 90 ML/MIN
[2018-08-02 11:53] LABS: MAGNESIUM 1.9 MG/DL (1.5-2.4)
[2018-08-02 12:34] VITALS: BP 145/85
== END 2018-08-02 12:35 | disposition home or self-care (01) ==
LOC: ER 10:51
DX: K21.9 Gastro-esophageal reflux disease without esophagitis (principal); I48.91 Unspecified atrial fibrillation; I25.10 Atherosclerotic heart disease of native coronary artery without angina pectoris; E78.00 Pure hypercholesterolemia, unspecified; I10 Essential (primary) hypertension; I25.2 Old myocardial infarction; J44.9 Chronic obstructive pulmonary disease, unspecified; E11.9 Type 2 diabetes mellitus without complications; Z95.5 Presence of coronary angioplasty implant and graft; Z79.82 Long term (current) use of aspirin; Z79.899 Other long term (current) drug therapy
CPT/HCPCS: 36415; 71045; 80053; 83735; 83880; 84484; 85025; 93005; 99284

== ENCOUNTER 2018-09-09 11:29 | Inpatient (IN) | payer MEDICARE, OTHER ==
[~2018-09-09] VITALS: Ht 185.4 cm; Wt 93.2 kg
[2018-09-09 11:49] LABS: BASOPHILS # (AUTO) 0.1 X10'3 (0-0.2); BASOPHILS % (AUTO) 1.1 % (0-1); EOSINOPHILS # (AUTO) 0.7 X10'3 (0-0.9); EOSINOPHILS % (AUTO) 9.3 % (0-6); HEMATOCRIT 45.2 % (42.0-52.0); HEMOGLOBIN 14.9 g/dl (14.0-17.9); LYMPHOCYTES # (AUTO) 2.6 X10'3 (1.1-4.8); LYMPHOCYTES % (AUTO) 34.7 % (21-51); MEAN CORPUSCULAR HEMOGLOBIN 30.9 PG (27.0-31.0); MEAN CORPUSCULAR HGB CONC 32.9 g/dL (33.0-36.5); MEAN CORPUSCULAR VOLUME 93.9 FL (78-98); MEAN PLATELET VOLUME 8.7 FL (7.4-10.4); MONOCYTES # (AUTO) 0.6 X10'3 (0-0.9); MONOCYTES % (AUTO) 8.4 % (2-12); NEUTROPHILS # (AUTO) 3.4 X10'3 (1.8-7.7); NEUTROPHILS % (AUTO) 46.5 % (42-75); PLATELET COUNT 241 X10'3 (140-440); RED BLOOD COUNT 4.82 X10'6 (4.70-6.10); RED CELL DISTRIBUTION WIDTH 15.8 % (11.5-14.5); WHITE BLOOD COUNT 7.4 X10'3 (4.5-11.0)
--- NOTE | 2018-09-09 11:49 | NUR ---
MADISON CONSULT INITATED BY MUNA BRYANT
[2018-09-09 12:05] LABS: INR 1.1 INR; PARTIAL THROMBOPLASTIN TIME 32 SECONDS (22-32)
[2018-09-09 12:10] LABS: ALANINE AMINOTRANSFERASE 21 U/L (12-78); ALBUMIN 3.7 G/DL (3.4-5.0); ALBUMIN/GLOBULIN RATIO 0.9 (1.1-1.5); ALKALINE PHOSPHATASE 97 IU/L (46-116); ANION GAP 9 (8-16); ASPARTATE AMINO TRANSFERASE 27 U/L (10-37); BILIRUBIN,TOTAL 0.4 MG/DL (0.1-1.0); BLOOD UREA NITROGEN 13 MG/DL (7-18); BUN/CREATININE RATIO 11.5 (5.4-32.0); CHLORIDE 107 MMOL/L (99-107); CREATININE 1.13 MG/DL (0.60-1.10); GLUCOSE 109 MG/DL (70-104); POTASSIUM 4.1 MMOL/L (3.5-5.1); SODIUM 142 MMOL/L (135-145); TOTAL CARBON DIOXIDE 26.2 MMOL/L (24-32); TOTAL PROTEIN 7.8 G/DL (6.4-8.2); TROPONIN I < 0.04 NG/ML (0.0-0.05); eGFR 62 ML/MIN
--- NOTE | 2018-09-09 12:30 | NUR ---
Pt arrived to ER at 1127. Straight to ct scan. Dr García notified. Pt back to room. Teleneuro consult initiated.
[2018-09-09] MEDS ORDERED: iohexol 350MG/ML 100ml bottle IV ONE (12:32)
[2018-09-09] MEDS ORDERED: morphine 4 MG/ML inj SYRINge IV PRN (14:35)
[2018-09-09] MEDS ORDERED: HYDROcodone/acetaminophen 5mg/325mg tablet PO PRN (14:35)
[2018-09-09] MEDS ORDERED: mag hydrox/Alum hydrox/simeth 30ml oral suspension PO PRN (14:35)
[2018-09-09] MEDS ORDERED: acetaminophen 325mg tablet PO PRN ×2 (14:35)
[2018-09-09] MEDS ORDERED: magnesium hydroxide 30ml (MOM) UD suspension PO PRN (14:35)
[2018-09-09] MEDS ORDERED: magnesium 4gm in 100ml NS 100 ML IV PRN (14:35)
[2018-09-09] MEDS ORDERED: potassium Cl 40MEQ/NS 500ml 500 ML IV PRN ×2 (14:35)
[2018-09-09] MEDS ORDERED: potassium Cl 20 mEq SR tablet PO PRN ×2 (14:35)
[2018-09-09] MEDS ORDERED: magnesium Cl slow-release 64mg tablet PO PRN (14:35)
[2018-09-09] MEDS ORDERED: magnesium 2GM in 50ml NS 50 ML IV PRN (14:35)
[2018-09-09] MEDS ORDERED: ondansetron/PF 4mg/2ml inj IV PRN (14:35)
[2018-09-09] MEDS: normal saline 1000ml 1,000 ML IV SCH (15:01)
[2018-09-09] MEDS ORDERED: nitroGLYCERIN 0.4mg SUBLingual tab SL PRN (16:05)
--- NOTE | 2018-09-09 16:42 | NUR ---
Pt to MRI.
--- NOTE | 2018-09-09 19:13 | NUR ---
PT PLACED ON HOSPITAL BED FOR COMFORT
[2018-09-09] MEDS ORDERED: temazepam 15mg capsule PO PRN (21:00)
[2018-09-09] MEDS: pantoprazole 40mg Tablet.DR PO SCH (21:11)
[2018-09-09] MEDS: docusate sod 100mg capsule PO SCH (21:11)
[2018-09-09] MEDS: dabigatran 150mg capsule PO SCH (21:11)
[2018-09-09] MEDS: APRISO PO SCH (21:45)
--- NOTE | 2018-09-10 01:01 | NUR ---
PT RESTING IN BED ON RIGHT SIDE.
[2018-09-10] MEDS: normal saline 1000ml 1,000 ML IV SCH ×2 (03:54→12:22)
[2018-09-10 07:58] LABS: BASOPHILS # (AUTO) 0.1 X10'3 (0-0.2); EOSINOPHILS # (AUTO) 0.7 X10'3 (0-0.9); EOSINOPHILS % (AUTO) 9.8 % (0-6); HEMATOCRIT 41.8 % (42.0-52.0); HEMOGLOBIN 13.8 g/dl (14.0-17.9); LYMPHOCYTES # (AUTO) 1.9 X10'3 (1.1-4.8); LYMPHOCYTES % (AUTO) 28.3 % (21-51); MEAN CORPUSCULAR VOLUME 93.9 FL (78-98); MEAN PLATELET VOLUME 8.7 FL (7.4-10.4); MONOCYTES # (AUTO) 0.7 X10'3 (0-0.9); MONOCYTES % (AUTO) 9.7 % (2-12); NEUTROPHILS # (AUTO) 3.5 X10'3 (1.8-7.7); NEUTROPHILS % (AUTO) 51.2 % (42-75); PLATELET COUNT 211 X10'3 (140-440); RED BLOOD COUNT 4.45 X10'6 (4.70-6.10); RED CELL DISTRIBUTION WIDTH 15.4 % (11.5-14.5); WHITE BLOOD COUNT 6.9 X10'3 (4.5-11.0)
[2018-09-10] MEDS ORDERED: aspirin 81mg tablet.DR PO SCH (08:00)
[2018-09-10] MEDS: K and/or MAG REPLACEMENT MC SCH (08:00)
[2018-09-10] MEDS: dabigatran 150mg capsule PO SCH ×2 (08:08→20:10)
[2018-09-10] MEDS: atorvastatin 20mg tablet PO SCH (08:08)
[2018-09-10] MEDS: isosorbide mononitrate 30mg tab.SR.24H PO SCH (08:09)
[2018-09-10] MEDS: docusate sod 100mg capsule PO SCH ×2 (08:10→20:11)
[2018-09-10] MEDS: pantoprazole 40mg Tablet.DR PO SCH ×2 (08:10→20:16)
[2018-09-10] MEDS: atenolol 25mg tablet PO SCH (08:10)
[2018-09-10] MEDS: tamsulosin 0.4mg capsule PO SCH (08:11)
[2018-09-10 08:44] LABS: ALANINE AMINOTRANSFERASE 19 U/L (12-78); ALBUMIN 3.1 G/DL (3.4-5.0); ALBUMIN/GLOBULIN RATIO 0.9 (1.1-1.5); ALKALINE PHOSPHATASE 87 IU/L (46-116); ANION GAP 9 (8-16); ASPARTATE AMINO TRANSFERASE 24 U/L (10-37); BILIRUBIN,TOTAL 0.5 MG/DL (0.1-1.0); BLOOD UREA NITROGEN 11 MG/DL (7-18); BUN/CREATININE RATIO 12.8 (5.4-32.0); CALCIUM 8.8 MG/DL (8.5-10.1); CHLORIDE 108 MMOL/L (99-107); CHOLESTEROL 99 MG/DL (0-200); CREATININE 0.86 MG/DL (0.60-1.10); GLUCOSE 106 MG/DL (70-104); HDL CHOLESTEROL 50 MG/DL (35-60); LDL CHOLESTEROL 41 MG/DL (50-100); POTASSIUM 4.1 MMOL/L (3.5-5.1); SODIUM 143 MMOL/L (135-145); TOTAL CARBON DIOXIDE 26.5 MMOL/L (24-32); TOTAL PROTEIN 6.7 G/DL (6.4-8.2); TRIGLYCERIDES 54 MG/DL (20-135); eGFR 85 ML/MIN
[2018-09-10] MEDS: APRISO PO SCH ×2 (09:30→20:11)
--- NOTE | 2018-09-10 11:10 | NUR ---
Patient in room ORTHO 4013. I have received report from Pollo in ED, and had the opportunity to ask questions and assume patient care.
[2018-09-10 11:15] VITALS: BP 114/66
--- NOTE | 2018-09-10 11:15 | NUR ---
Pt arrived on the floor, tucked in, provided comfort measures, hung new NS. Pt is A & O, no complaints of pain at this time.
[2018-09-10 18:00] VITALS: BP 105/72
--- NOTE | 2018-09-10 18:30 | NUR ---
Problems reprioritized. Patient report given, questions answered & plan of care reviewed with Dotty MARRERO.
[2018-09-10] MEDS ORDERED: HYDROcodone/acetaminophen 10/325mg tab PO PRN (20:00)
[2018-09-10 22:00] VITALS: BP 120/69
[2018-09-11 02:00] VITALS: BP 120/61
--- NOTE | 2018-09-11 06:14 | NUR ---
RECEIVED REPORT FROM ELIDA ORANTES
--- NOTE | 2018-09-11 06:30 | NUR ---
Problems reprioritized. Patient report given, questions answered & plan of care reviewed with Judi MARRERO.
[2018-09-11] MEDS: K and/or MAG REPLACEMENT MC SCH (07:43)
[2018-09-11] MEDS: docusate sod 100mg capsule PO SCH (07:53)
[2018-09-11] MEDS: tamsulosin 0.4mg capsule PO SCH (07:53)
[2018-09-11] MEDS: isosorbide mononitrate 30mg tab.SR.24H PO SCH (07:54)
[2018-09-11] MEDS: APRISO PO SCH (07:55)
[2018-09-11] MEDS: atorvastatin 20mg tablet PO SCH (07:55)
[2018-09-11] MEDS: dabigatran 150mg capsule PO SCH (07:58)
[2018-09-11] MEDS: atenolol 25mg tablet PO SCH (07:59)
[2018-09-11] MEDS: pantoprazole 40mg Tablet.DR PO SCH (07:59)
[2018-09-11 08:00] VITALS: BP 123/68
[2018-09-11] MEDS ORDERED: clopidogrel 75mg tablet PO SCH (08:00)
[2018-09-11 08:30] LABS: BASOPHILS # (AUTO) 0.1 X10'3 (0-0.2); BASOPHILS % (AUTO) 1.2 % (0-1); EOSINOPHILS # (AUTO) 0.5 X10'3 (0-0.9); EOSINOPHILS % (AUTO) 9.1 % (0-6); HEMATOCRIT 40.4 % (42.0-52.0); HEMOGLOBIN 13.5 g/dl (14.0-17.9); LYMPHOCYTES # (AUTO) 2.2 X10'3 (1.1-4.8); LYMPHOCYTES % (AUTO) 36.1 % (21-51); MEAN CORPUSCULAR HEMOGLOBIN 31.5 PG (27.0-31.0); MEAN CORPUSCULAR HGB CONC 33.6 g/dL (33.0-36.5); MEAN CORPUSCULAR VOLUME 93.8 FL (78-98); MEAN PLATELET VOLUME 8.8 FL (7.4-10.4); MONOCYTES # (AUTO) 0.6 X10'3 (0-0.9); MONOCYTES % (AUTO) 10.3 % (2-12); NEUTROPHILS # (AUTO) 2.6 X10'3 (1.8-7.7); NEUTROPHILS % (AUTO) 43.3 % (42-75); PLATELET COUNT 205 X10'3 (140-440); RED CELL DISTRIBUTION WIDTH 15.6 % (11.5-14.5)
[2018-09-11 08:47] LABS: ALANINE AMINOTRANSFERASE 16 U/L (12-78); ALBUMIN 3.2 G/DL (3.4-5.0); ALBUMIN/GLOBULIN RATIO 0.9 (1.1-1.5); ALKALINE PHOSPHATASE 91 IU/L (46-116); ANION GAP 7 (8-16); ASPARTATE AMINO TRANSFERASE 21 U/L (10-37); BILIRUBIN,TOTAL 0.4 MG/DL (0.1-1.0); BLOOD UREA NITROGEN 14 MG/DL (7-18); BUN/CREATININE RATIO 16.5 (5.4-32.0); CALCIUM 8.7 MG/DL (8.5-10.1); CHLORIDE 107 MMOL/L (99-107); CREATININE 0.85 MG/DL (0.60-1.10); GLUCOSE 99 MG/DL (70-104); MAGNESIUM 1.9 MG/DL (1.5-2.4); POTASSIUM 4.1 MMOL/L (3.5-5.1); SODIUM 143 MMOL/L (135-145); TOTAL CARBON DIOXIDE 29.3 MMOL/L (24-32); TOTAL PROTEIN 6.7 G/DL (6.4-8.2); eGFR 86 ML/MIN
[2018-09-11 10:00] VITALS: BP 89/46
--- NOTE | 2018-09-11 13:19 | NUR ---
pt d/c with instructions, understanding of instructions and with all belongings in wheelchair to private vehicle to f/u w/pcp
== END 2018-09-11 13:01 | disposition home health service (06) | DRG 69 ==
LOC: ER 11:30 → ED HOLD 14:33 → EDBEDREQ 09-10 10:53 → ORTHO 4S 09-10 11:24
PROVIDERS: ADMIT Internal Medicine; ATTEND Family Medicine
PROC: B3251ZZ Computerized Tomography (CT Scan) of Bilateral Common Carotid Arteries using Low Osmolar Contrast (ICD-10-PCS; principal; 2018-09-09)
DX: G45.9 Transient cerebral ischemic attack, unspecified (principal); I25.10 Atherosclerotic heart disease of native coronary artery without angina pectoris; I48.91 Unspecified atrial fibrillation; I10 Essential (primary) hypertension; E11.9 Type 2 diabetes mellitus without complications; E78.00 Pure hypercholesterolemia, unspecified; E78.5 Hyperlipidemia, unspecified; J44.9 Chronic obstructive pulmonary disease, unspecified; K21.9 Gastro-esophageal reflux disease without esophagitis; F32.9 Major depressive disorder, single episode, unspecified; F41.9 Anxiety disorder, unspecified; H26.9 Unspecified cataract; N28.9 Disorder of kidney and ureter, unspecified; M25.512 Pain in left shoulder; M25.511 Pain in right shoulder; G89.29 Other chronic pain; I25.2 Old myocardial infarction; Z98.49 Cataract extraction status, unspecified eye; Z79.02 Long term (current) use of antithrombotics/antiplatelets; Z82.0 Family history of epilepsy and other diseases of the nervous system; Z80.0 Family history of malignant neoplasm of digestive organs
CPT/HCPCS: 36415; 70450; 70496; 70498; 70544; 70551; 71045; 80053; 80061; 82948; 83735; 84484; 85025; 85610; 85730; 87070; 93005; 93308; 93880; 97162; 97530; 99285; G0378; J7030; Q9967

== ENCOUNTER 2019-02-21 12:33 | Emergency (ER) | payer MEDICARE, OTHER ==
[~2019-02-21] VITALS: Ht 182.9 cm; Wt 90.5 kg
[2019-02-21 13:08] LABS: BASOPHILS # (AUTO) 0.1 X10'3 (0-0.2); EOSINOPHILS # (AUTO) 0.1 X10'3 (0-0.9); EOSINOPHILS % (AUTO) 2.3 % (0-6); HEMATOCRIT 42.9 % (42.0-52.0); HEMOGLOBIN 14.2 g/dl (14.0-17.9); LYMPHOCYTES % (AUTO) 31.4 % (21-51); MEAN CORPUSCULAR HEMOGLOBIN 31.8 PG (27.0-31.0); MEAN CORPUSCULAR HGB CONC 33.2 g/dL (33.0-36.5); MEAN CORPUSCULAR VOLUME 95.9 FL (78-98); MEAN PLATELET VOLUME 8.7 FL (7.4-10.4); MONOCYTES # (AUTO) 0.5 X10'3 (0-0.9); MONOCYTES % (AUTO) 7.9 % (2-12); NEUTROPHILS # (AUTO) 3.7 X10'3 (1.8-7.7); NEUTROPHILS % (AUTO) 57.4 % (42-75); PLATELET COUNT 210 X10'3 (140-440); RED BLOOD COUNT 4.47 X10'6 (4.70-6.10); RED CELL DISTRIBUTION WIDTH 15.5 % (11.5-14.5); WHITE BLOOD COUNT 6.5 X10'3 (4.5-11.0)
[2019-02-21 13:24] LABS: ALANINE AMINOTRANSFERASE 26 U/L (12-78); ALBUMIN 3.5 G/DL (3.4-5.0); ALKALINE PHOSPHATASE 87 IU/L (46-116); ANION GAP 9 (8-16); ASPARTATE AMINO TRANSFERASE 28 U/L (10-37); BILIRUBIN,TOTAL 0.7 MG/DL (0.1-1.0); BLOOD UREA NITROGEN 9 MG/DL (7-18); CALCIUM 8.4 MG/DL (8.5-10.1); CHLORIDE 111 MMOL/L (99-107); CREATININE 0.75 MG/DL (0.60-1.10); GLUCOSE 114 MG/DL (70-104); POTASSIUM 4.2 MMOL/L (3.5-5.1); SODIUM 146 MMOL/L (135-145); TOTAL CARBON DIOXIDE 25.9 MMOL/L (24-32); TOTAL PROTEIN 7.1 G/DL (6.4-8.2); eGFR > 90 ML/MIN
--- NOTE | 2019-02-21 13:44 | NUR ---
assisting RN with pt care, pt c/o rt sided head pain starting from base of skull radiating over rt side of skull "my vein was popping out", pain was off and on x1 day, no recent trauma, pt amb with cane to room 14, report to Mauricio MARRERO
[2019-02-21 15:07] LABS: CLARITY,URINE CLEAR (Clear); COLOR,URINE YELLOW (Yellow); GLUCOSE, URINE NEGATIVE (Neg); KETONES,URINE NEGATIVE (Neg); LEUKOCYTE ESTERASE ,URINE TRACE (Neg); NITRITES, URINE NEGATIVE (Neg); OCCULT BLOOD,URINE TRACE-INTACT (Neg); PH,URINE 5.5 (4.8-8.0); PROTEIN,URINE NEGATIVE (Neg); UA COLLECTION TYPE CLN CATCH MIDSTREAM; UROBILINOGEN,URINE 0.2 E.U/dL (0.2-1.0)
[2019-02-21 15:25] VITALS: BP 132/72
[2019-02-21 16:13] LABS: BACTERIA,URINE NONE SEEN /HPF (Neg); SQUAMOUS EPITHELIAL CELL,UR FEW /LPF (FEW)
[2019-02-21 16:20] LABS: WBC,URINE 0-4 /HPF (0-4)
== END 2019-02-21 15:28 | disposition home or self-care (01) ==
LOC: ER 12:34
DX: R51 Headache (principal); H53.8 Other visual disturbances; I48.91 Unspecified atrial fibrillation; I25.10 Atherosclerotic heart disease of native coronary artery without angina pectoris; E78.00 Pure hypercholesterolemia, unspecified; I10 Essential (primary) hypertension; I25.2 Old myocardial infarction; J44.9 Chronic obstructive pulmonary disease, unspecified; E11.9 Type 2 diabetes mellitus without complications; F32.9 Major depressive disorder, single episode, unspecified; F41.9 Anxiety disorder, unspecified; Z79.82 Long term (current) use of aspirin; Z79.899 Other long term (current) drug therapy; Z87.19 Personal history of other diseases of the digestive system; Z87.448 Personal history of other diseases of urinary system; Z98.41 Cataract extraction status, right eye; Z98.42 Cataract extraction status, left eye; Z95.5 Presence of coronary angioplasty implant and graft
CPT/HCPCS: 36415; 70450; 80053; 81001; 85025; 85610; 87088; 99284

== ENCOUNTER 2019-04-23 04:44 | Inpatient (IN) | payer MEDICARE ==
[~2019-04-23] VITALS: Ht 180.3 cm; Wt 90.0 kg
[2019-04-23 05:09] LABS: BASOPHILS # (AUTO) 0.1 X10'3 (0-0.2); BASOPHILS % (AUTO) 0.9 % (0-1); EOSINOPHILS # (AUTO) 0.3 X10'3 (0-0.9); HEMATOCRIT 37.3 % (42.0-52.0); HEMOGLOBIN 12.5 g/dl (14.0-17.9); LYMPHOCYTES # (AUTO) 2.3 X10'3 (1.1-4.8); LYMPHOCYTES % (AUTO) 35.9 % (21-51); MEAN CORPUSCULAR HEMOGLOBIN 32.3 PG (27.0-31.0); MEAN CORPUSCULAR HGB CONC 33.6 g/dL (33.0-36.5); MEAN CORPUSCULAR VOLUME 96.1 FL (78-98); MEAN PLATELET VOLUME 8.8 FL (7.4-10.4); MONOCYTES # (AUTO) 0.5 X10'3 (0-0.9); MONOCYTES % (AUTO) 8.5 % (2-12); NEUTROPHILS # (AUTO) 3.2 X10'3 (1.8-7.7); NEUTROPHILS % (AUTO) 49.7 % (42-75); PLATELET COUNT 169 X10'3 (140-440); RED BLOOD COUNT 3.88 X10'6 (4.70-6.10); RED CELL DISTRIBUTION WIDTH 14.9 % (11.5-14.5); WHITE BLOOD COUNT 6.4 X10'3 (4.5-11.0)
[2019-04-23 05:23] LABS: PARTIAL THROMBOPLASTIN TIME 28 SECONDS (22-32)
[2019-04-23 05:33] LABS: ALANINE AMINOTRANSFERASE 14 U/L (12-78); ALBUMIN 2.8 G/DL (3.4-5.0); ALBUMIN/GLOBULIN RATIO 0.9 (1.1-1.5); ALKALINE PHOSPHATASE 82 IU/L (46-116); ANION GAP 8 (8-16); ASPARTATE AMINO TRANSFERASE 18 U/L (10-37); BILIRUBIN,TOTAL 0.5 MG/DL (0.1-1.0); BLOOD UREA NITROGEN 16 MG/DL (7-18); BUN/CREATININE RATIO 18.8 (5.4-32.0); CALCIUM 8.1 MG/DL (8.5-10.1); CHLORIDE 114 MMOL/L (99-107); CREATININE 0.85 MG/DL (0.60-1.10); GLUCOSE 101 MG/DL (70-104); MAGNESIUM 1.5 MG/DL (1.5-2.4); SODIUM 145 MMOL/L (135-145); TOTAL CARBON DIOXIDE 22.6 MMOL/L (24-32); TOTAL PROTEIN 5.8 G/DL (6.4-8.2); eGFR 86 ML/MIN
[2019-04-23 05:40] LABS: POTASSIUM 2.9 MMOL/L (3.5-5.1)
[2019-04-23] MEDS ORDERED: magnesium oxide 400mg tablet PO ONE (05:45)
[2019-04-23] MEDS ORDERED: aspirin 81mg tab.chew PO ONE (05:45)
[2019-04-23] MEDS ORDERED: potassium Cl 20 mEq SR tablet PO ONE (05:45)
[2019-04-23] MEDS ORDERED: potassium 10mEq/100ml NS w/LIDOcaine (10mg/bag) IV ONE (05:45)
[2019-04-23] MEDS ORDERED: magnesium 2GM in 50ml NS 50 ML IV ONE (05:45)
[2019-04-23] MEDS ORDERED: potassium Cl 10 mEq/100mL bag IV ONE (05:55)
[2019-04-23] MEDS ORDERED: LOPE2CAP PO (05:58)
[2019-04-23] MEDS ORDERED: ATEN-169 PO (05:58)
[2019-04-23] MEDS ORDERED: MULT-1085 PO (05:58)
[2019-04-23] MEDS ORDERED: DOCU100C41 PO (05:58)
[2019-04-23] MEDS ORDERED: FOLI0.4T14 PO (05:58)
[2019-04-23] MEDS ORDERED: DABI150C PO (05:58)
[2019-04-23] MEDS ORDERED: DIAZ10TA4 PO ×2 (05:58→05:59)
[2019-04-23] MEDS ORDERED: MESA0.37 PO (05:58)
[2019-04-23] MEDS ORDERED: docusate sod 100mg capsule PO SCH (06:20)
[2019-04-23] MEDS ORDERED: ondansetron/PF 4mg/2ml inj IV PRN (06:20)
[2019-04-23] MEDS ORDERED: magnesium Cl slow-release 64mg tablet PO PRN (06:20)
[2019-04-23] MEDS ORDERED: potassium Cl 20 mEq SR tablet PO PRN (06:20)
[2019-04-23] MEDS ORDERED: mag hydrox/Alum hydrox/simeth 30ml oral suspension PO PRN (06:20)
[2019-04-23] MEDS ORDERED: magnesium hydroxide 30ml (MOM) UD suspension PO PRN (06:20)
[2019-04-23] MEDS ORDERED: acetaminophen 325mg tablet PO PRN (06:20)
[2019-04-23] MEDS ORDERED: loperamide 2mg capsule PO SCH (06:20)
[2019-04-23 06:56] LABS: CLARITY,URINE CLEAR (Clear); COLOR,URINE YELLOW (Yellow); GLUCOSE, URINE NEGATIVE (Neg); KETONES,URINE NEGATIVE (Neg); LEUKOCYTE ESTERASE ,URINE NEGATIVE (Neg); NITRITES, URINE NEGATIVE (Neg); OCCULT BLOOD,URINE NEGATIVE (Neg); PH,URINE 5.5 (4.8-8.0); PROTEIN,URINE NEGATIVE (Neg); UROBILINOGEN,URINE 0.2 E.U/dL (0.2-1.0)
[2019-04-23 07:02] LABS: UA COLLECTION TYPE URINAL
--- NOTE | 2019-04-23 07:30 | NUR ---
Patient in room PCU 3012. I have received report from GEOGRAPHIC INFORMATION SYSTEMS DIRECTOR and had the opportunity to ask questions and assume patient care. Awaiting pt arrival.
[2019-04-23 08:00] VITALS: BP 104/91
[2019-04-23] MEDS ORDERED: dabigatran 150mg capsule PO SCH (08:00)
[2019-04-23] MEDS ORDERED: tamsulosin 0.4mg capsule PO SCH (08:00)
[2019-04-23] MEDS ORDERED: atenolol 25mg tablet PO SCH (08:00)
[2019-04-23] MEDS ORDERED: K and/or MAG REPLACEMENT MC SCH (08:00)
[2019-04-23] MEDS ORDERED: aspirin 81mg tablet.DR PO SCH (08:00)
[2019-04-23] MEDS ORDERED: folic acid 1mg tablet PO SCH (08:00)
[2019-04-23] MEDS ORDERED: pantoprazole 40mg Tablet.DR PO SCH (08:00)
[2019-04-23] MEDS ORDERED: atorvastatin 20mg tablet PO SCH (08:00)
[2019-04-23] MEDS ORDERED: isosorbide mononitrate 30mg tab.SR.24H PO SCH (08:00)
[2019-04-23] MEDS ORDERED: mesalamine 1.2gm ER tablet PO SCH (08:00)
[2019-04-23] MEDS ORDERED: diazepam 5mg tablet PO PRN (08:00)
--- NOTE | 2019-04-23 08:00 | NUR ---
Pt has arrived on unit. VSS
[2019-04-23] MEDS: potassium Cl 20 mEq SR tablet PO PRN ×2 (10:26→14:52)
== END 2019-04-23 17:20 | disposition home or self-care (01) | DRG 392 ==
LOC: ER 04:46 → ED HOLD 06:16 → PCU 3S 07:57
PROVIDERS: ADMIT Internal Medicine; ATTEND Internal Medicine
DX: K22.4 Dyskinesia of esophagus (principal); I25.119 Atherosclerotic heart disease of native coronary artery with unspecified angina pectoris; E87.6 Hypokalemia; E11.9 Type 2 diabetes mellitus without complications; E78.00 Pure hypercholesterolemia, unspecified; E83.42 Hypomagnesemia; I10 Essential (primary) hypertension; I48.91 Unspecified atrial fibrillation; J44.9 Chronic obstructive pulmonary disease, unspecified; F32.9 Major depressive disorder, single episode, unspecified; F41.9 Anxiety disorder, unspecified; H26.9 Unspecified cataract; I25.2 Old myocardial infarction; Z95.5 Presence of coronary angioplasty implant and graft; Z80.0 Family history of malignant neoplasm of digestive organs
CPT/HCPCS: 36415; 71045; 80053; 81003; 83735; 83880; 84132; 84484; 85025; 85610; 85730; 93005; 93306; 99285; G0378; J3475; J3480

== ENCOUNTER 2020-01-21 05:02 | Inpatient (IN) | payer OTHER, MEDICARE ==
[~2020-01-21] VITALS: Ht 180.3 cm; Wt 77.3 kg
[~2020-01-21 05:02] MED LIST changes: -COL100C PO; +DIAZ10TA4 PO; -DIAZ2TAB3 PO; +DOCU100C41 PO; +FOLI0.4T14 PO; -FOLI1TAB16 PO; +LOPE2CAP PO; +MULT-1085 PO; -NITR0.4T48 SL
[2020-01-21] MEDS ORDERED: PANT-47 PO (05:22)
[2020-01-21] MEDS ORDERED: ASPI81TA52 PO (05:22)
[2020-01-21 05:25] LABS: BASOPHILS # (AUTO) 0.1 X10'3 (0-0.2); BASOPHILS % (AUTO) 0.9 % (0-1); EOSINOPHILS # (AUTO) 0.4 X10'3 (0-0.9); EOSINOPHILS % (AUTO) 4.9 % (0-6); HEMATOCRIT 42.4 % (42.0-52.0); HEMOGLOBIN 14.3 g/dl (14.0-17.9); LYMPHOCYTES # (AUTO) 2.9 X10'3 (1.1-4.8); LYMPHOCYTES % (AUTO) 33.4 % (21-51); MEAN CORPUSCULAR HEMOGLOBIN 32.6 PG (27.0-31.0); MEAN CORPUSCULAR HGB CONC 33.9 g/dL (33.0-36.5); MEAN CORPUSCULAR VOLUME 96.3 FL (78-98); MEAN PLATELET VOLUME 8.9 FL (7.4-10.4); MONOCYTES # (AUTO) 0.8 X10'3 (0-0.9); MONOCYTES % (AUTO) 9.6 % (2-12); NEUTROPHILS # (AUTO) 4.5 X10'3 (1.8-7.7); NEUTROPHILS % (AUTO) 51.2 % (42-75); PLATELET COUNT 200 X10'3 (140-440); RED CELL DISTRIBUTION WIDTH 15.1 % (11.5-14.5); WHITE BLOOD COUNT 8.8 X10'3 (4.5-11.0)
--- NOTE | 2020-01-21 05:25 | NUR ---
Pt went to CT scan with support services tech on tele monitoring.
--- NOTE | 2020-01-21 05:34 | NUR ---
Patient returned to room [address] scan.
[2020-01-21 05:37] LABS: ALANINE AMINOTRANSFERASE 24 U/L (12-78); ALBUMIN 3.3 G/DL (3.4-5.0); ALBUMIN/GLOBULIN RATIO 0.8 (1.1-1.5); ALKALINE PHOSPHATASE 87 IU/L (46-116); ANION GAP 9 (8-16); ASPARTATE AMINO TRANSFERASE 32 U/L (10-37); BILIRUBIN,TOTAL 0.8 MG/DL (0.1-1.0); BLOOD UREA NITROGEN 14 MG/DL (7-18); BUN/CREATININE RATIO 13.2 (5.4-32.0); CHLORIDE 107 MMOL/L (99-107); CREATININE 1.06 MG/DL (0.60-1.10); GLUCOSE 123 MG/DL (70-104); POTASSIUM 4.1 MMOL/L (3.5-5.1); SODIUM 142 MMOL/L (135-145); TOTAL CARBON DIOXIDE 25.9 MMOL/L (24-32); TOTAL PROTEIN 7.2 G/DL (6.4-8.2); eGFR 66 ML/MIN
[2020-01-21 05:43] LABS: TROPONIN I < 0.04 NG/ML (0.0-0.05)
--- NOTE | 2020-01-21 05:54 | NUR ---
Teleneuro neurologist is interviewing the patient at this time.
[2020-01-21] MEDS ORDERED: magnesium hydroxide 30ml (MOM) UD suspension PO PRN (06:15)
[2020-01-21] MEDS ORDERED: mag hydrox/Alum hydrox/simeth 30ml oral suspension PO PRN (06:15)
[2020-01-21] MEDS ORDERED: potassium Cl 20 mEq SR tablet PO PRN ×2 (06:15)
[2020-01-21] MEDS ORDERED: potassium CL 10mEq/100ml bag 100 ML IV PRN ×2 (06:15)
[2020-01-21] MEDS ORDERED: magnesium Cl slow-release 64mg tablet PO PRN (06:15)
[2020-01-21] MEDS ORDERED: magnesium 4gm in 100ml NS 100 ML IV PRN (06:15)
[2020-01-21] MEDS ORDERED: acetaminophen 325mg tablet PO PRN ×2 (06:15)
[2020-01-21] MEDS ORDERED: ondansetron/PF 4mg/2ml inj IV PRN (06:15)
[2020-01-21] MEDS ORDERED: magnesium 2GM in 50ml NS 50 ML IV PRN (06:15)
[2020-01-21 07:52] LABS: HEMOGLOBIN A1C 6.3 % (4.5-6.2)
[2020-01-21] MEDS: docusate sod 100mg capsule PO SCH ×2 (08:00→21:43)
[2020-01-21] MEDS: K and/or MAG REPLACEMENT MC SCH ×2 (08:00→20:00)
--- NOTE | 2020-01-21 09:16 | NUR ---
Patient in room ED 3. I have received report from SARI MARRERO and had the opportunity to ask questions and assume patient care.
--- NOTE | 2020-01-21 09:58 | NUR ---
RECAri PT FROM ER. PT A&O X4. VSS
[2020-01-21 09:59] VITALS: BP 168/96
[2020-01-21 18:00] VITALS: BP 164/91
--- NOTE | 2020-01-21 18:25 | NUR ---
Problems reprioritized. Patient report given, questions answered & plan of care reviewed with RAJANI MARRERO.
[2020-01-21] MEDS: pantoprazole 40mg Tablet.DR PO SCH (21:43)
[2020-01-21] MEDS: dabigatran 150mg capsule PO SCH (21:43)
[2020-01-21] MEDS: atenolol 25mg tablet PO SCH (21:44)
[2020-01-21 22:00] VITALS: BP 138/77
[2020-01-22 02:00] VITALS: BP 135/62
[2020-01-22 05:46] LABS: BASOPHILS # (AUTO) 0.1 X10'3 (0-0.2); BASOPHILS % (AUTO) 0.9 % (0-1); EOSINOPHILS # (AUTO) 0.3 X10'3 (0-0.9); HEMATOCRIT 42.5 % (42.0-52.0); HEMOGLOBIN 14.2 g/dl (14.0-17.9); LYMPHOCYTES # (AUTO) 2.4 X10'3 (1.1-4.8); LYMPHOCYTES % (AUTO) 37.4 % (21-51); MEAN CORPUSCULAR HEMOGLOBIN 32.2 PG (27.0-31.0); MEAN CORPUSCULAR HGB CONC 33.4 g/dL (33.0-36.5); MEAN CORPUSCULAR VOLUME 96.1 FL (78-98); MEAN PLATELET VOLUME 9.1 FL (7.4-10.4); MONOCYTES # (AUTO) 0.8 X10'3 (0-0.9); NEUTROPHILS # (AUTO) 2.9 X10'3 (1.8-7.7); NEUTROPHILS % (AUTO) 44.7 % (42-75); PLATELET COUNT 191 X10'3 (140-440); RED BLOOD COUNT 4.42 X10'6 (4.70-6.10); RED CELL DISTRIBUTION WIDTH 14.9 % (11.5-14.5); WHITE BLOOD COUNT 6.5 X10'3 (4.5-11.0)
[2020-01-22 06:00] VITALS: BP 104/77
[2020-01-22 06:06] LABS: ALANINE AMINOTRANSFERASE 22 U/L (12-78); ALBUMIN 3.2 G/DL (3.4-5.0); ALBUMIN/GLOBULIN RATIO 0.9 (1.1-1.5); ALKALINE PHOSPHATASE 80 IU/L (46-116); ANION GAP 11 (8-16); ASPARTATE AMINO TRANSFERASE 31 U/L (10-37); BILIRUBIN,TOTAL 0.9 MG/DL (0.1-1.0); BLOOD UREA NITROGEN 14 MG/DL (7-18); BUN/CREATININE RATIO 15.7 (5.4-32.0); CALCIUM 8.7 MG/DL (8.5-10.1); CHLORIDE 106 MMOL/L (99-107); CHOL/HDL RATIO 2.3 (0.00-4.99); CHOLESTEROL 110 MG/DL (0-200); CREATININE 0.89 MG/DL (0.60-1.10); GLUCOSE 100 MG/DL (70-104); HDL CHOLESTEROL 48 MG/DL (35-60); LDL CHOLESTEROL 51 MG/DL (50-100); MAGNESIUM 1.9 MG/DL (1.5-2.4); POTASSIUM 3.6 MMOL/L (3.5-5.1); SODIUM 140 MMOL/L (135-145); TOTAL CARBON DIOXIDE 22.6 MMOL/L (24-32); TOTAL PROTEIN 6.9 G/DL (6.4-8.2); TRIGLYCERIDES 67 MG/DL (20-135); eGFR 81 ML/MIN
--- NOTE | 2020-01-22 06:32 | NUR ---
received report from ken ward
[2020-01-22] MEDS: K and/or MAG REPLACEMENT MC SCH ×2 (06:54→19:52)
[2020-01-22] MEDS: docusate sod 100mg capsule PO SCH ×2 (07:05→19:53)
[2020-01-22] MEDS: tamsulosin 0.4mg capsule PO SCH (07:05)
[2020-01-22] MEDS: mesalamine 1.2gm ER tablet PO SCH (07:06)
[2020-01-22] MEDS: isosorbide mononitrate 30mg tab.SR.24H PO SCH (07:06)
[2020-01-22] MEDS: folic acid 1mg tablet PO SCH (07:06)
[2020-01-22] MEDS: atorvastatin 20mg tablet PO SCH (07:07)
[2020-01-22] MEDS: dabigatran 150mg capsule PO SCH ×2 (07:07→19:53)
[2020-01-22] MEDS: pantoprazole 40mg Tablet.DR PO SCH ×2 (07:08→19:53)
[2020-01-22] MEDS: atenolol 25mg tablet PO SCH ×2 (07:09→19:57)
[2020-01-22] MEDS: aspirin 81mg tablet.DR PO SCH (07:09)
[2020-01-22 10:00] VITALS: BP 92/52
[2020-01-22] MEDS ORDERED: MESA1.2T PO (11:07)
[2020-01-22] MEDS ORDERED: TIOT4MIS3 INH (11:11)
[2020-01-22] MEDS ORDERED: DONE10TA7 PO (11:11)
[2020-01-22 14:56] VITALS: BP 85/53
--- NOTE | 2020-01-22 18:21 | NUR ---
gave report to ken marsh
[2020-01-22 19:59] VITALS: BP 86/54
[2020-01-23 06:00] VITALS: BP 111/74
[2020-01-23 06:18] LABS: BASOPHILS % (AUTO) 0.5 % (0-1); EOSINOPHILS # (AUTO) 0.3 X10'3 (0-0.9); EOSINOPHILS % (AUTO) 4.9 % (0-6); HEMATOCRIT 41.9 % (42.0-52.0); HEMOGLOBIN 14.2 g/dl (14.0-17.9); LYMPHOCYTES # (AUTO) 2.5 X10'3 (1.1-4.8); MEAN CORPUSCULAR HEMOGLOBIN 32.5 PG (27.0-31.0); MEAN CORPUSCULAR HGB CONC 33.8 g/dL (33.0-36.5); MEAN CORPUSCULAR VOLUME 96.2 FL (78-98); MEAN PLATELET VOLUME 9.4 FL (7.4-10.4); MONOCYTES # (AUTO) 0.6 X10'3 (0-0.9); MONOCYTES % (AUTO) 9.3 % (2-12); NEUTROPHILS # (AUTO) 3.2 X10'3 (1.8-7.7); NEUTROPHILS % (AUTO) 48.3 % (42-75); PLATELET COUNT 194 X10'3 (140-440); RED BLOOD COUNT 4.36 X10'6 (4.70-6.10); RED CELL DISTRIBUTION WIDTH 14.8 % (11.5-14.5); WHITE BLOOD COUNT 6.6 X10'3 (4.5-11.0)
[2020-01-23 06:28] LABS: ALANINE AMINOTRANSFERASE 23 U/L (12-78); ALBUMIN 3.4 G/DL (3.4-5.0); ALBUMIN/GLOBULIN RATIO 0.9 (1.1-1.5); ALKALINE PHOSPHATASE 81 IU/L (46-116); ANION GAP 9 (8-16); ASPARTATE AMINO TRANSFERASE 31 U/L (10-37); BLOOD UREA NITROGEN 16 MG/DL (7-18); CALCIUM 8.9 MG/DL (8.5-10.1); CHLORIDE 105 MMOL/L (99-107); CREATININE 1.14 MG/DL (0.60-1.10); GLUCOSE 106 MG/DL (70-104); MAGNESIUM 1.9 MG/DL (1.5-2.4); POTASSIUM 3.7 MMOL/L (3.5-5.1); SODIUM 138 MMOL/L (135-145); eGFR 61 ML/MIN
--- NOTE | 2020-01-23 07:17 | NUR ---
Patient in room ORTHO 4024. I have received report from ELIDA Miguel and had the opportunity to ask questions and assume patient care.
[2020-01-23] MEDS: docusate sod 100mg capsule PO SCH (08:00)
[2020-01-23] MEDS: K and/or MAG REPLACEMENT MC SCH (08:00)
[2020-01-23] MEDS: dabigatran 150mg capsule PO SCH (09:32)
[2020-01-23] MEDS: pantoprazole 40mg Tablet.DR PO SCH (09:32)
[2020-01-23] MEDS: isosorbide mononitrate 30mg tab.SR.24H PO SCH (09:33)
[2020-01-23] MEDS: folic acid 1mg tablet PO SCH (09:34)
[2020-01-23] MEDS: atorvastatin 20mg tablet PO SCH (09:34)
[2020-01-23] MEDS: mesalamine 1.2gm ER tablet PO SCH (09:34)
[2020-01-23] MEDS: aspirin 81mg tablet.DR PO SCH (09:35)
[2020-01-23] MEDS: tamsulosin 0.4mg capsule PO SCH (09:35)
[2020-01-23] MEDS: atenolol 25mg tablet PO SCH (09:46)
[2020-01-23 10:00] VITALS: BP 115/66
--- NOTE | 2020-01-23 13:36 | NUR ---
pt d/c with instructions understanding of instructions and w/all belongings in wheelchair accompanied by nursing staff in wheelchair to private vehicle to f/u w/pcp
== END 2020-01-23 13:25 | disposition home or self-care (01) | DRG 65 ==
LOC: ER 05:03 → ED HOLD 06:15 → ORTHO 4S 09:30 → OBSVTOIN 01-22 10:00
PROVIDERS: ADMIT Family Medicine; ATTEND Family Medicine
DX: I63.9 Cerebral infarction, unspecified (principal); I48.20 Chronic atrial fibrillation, unspecified; E11.9 Type 2 diabetes mellitus without complications; E78.00 Pure hypercholesterolemia, unspecified; E78.5 Hyperlipidemia, unspecified; F17.210 Nicotine dependence, cigarettes, uncomplicated; F32.9 Major depressive disorder, single episode, unspecified; F41.9 Anxiety disorder, unspecified; I10 Essential (primary) hypertension; I25.10 Atherosclerotic heart disease of native coronary artery without angina pectoris; J44.9 Chronic obstructive pulmonary disease, unspecified; N40.0 Benign prostatic hyperplasia without lower urinary tract symptoms; I25.2 Old myocardial infarction; Z79.01 Long term (current) use of anticoagulants; Z80.0 Family history of malignant neoplasm of digestive organs; Z82.0 Family history of epilepsy and other diseases of the nervous system; Z85.038 Personal history of other malignant neoplasm of large intestine; Z79.899 Other long term (current) drug therapy
CPT/HCPCS: 36415; 70450; 70544; 70551; 71045; 80053; 80061; 82948; 83036; 83735; 84484; 85025; 87081; 92508; 92616; 93005; 93306; 93880; 97116; 97162; 97530; 99285; G0378

== ENCOUNTER 2020-02-13 14:08 | Emergency (ER) | payer OTHER, MEDICARE ==
[~2020-02-13] VITALS: Ht 180.3 cm; Wt 96.8 kg
[~2020-02-13 14:08] MED LIST changes: -ASPI-1071 PO; +ASPI81TA52 PO; +DONE10TA7 PO; -MESA0.37 PO; +MESA1.2T PO; +TIOT4MIS3 INH
[2020-02-13] MEDS ORDERED: normal saline 1000ML IV soln IVB ONE (14:15)
[2020-02-13 14:43] LABS: BASOPHILS # (AUTO) 0.1 X10'3 (0-0.2); EOSINOPHILS # (AUTO) 0.2 X10'3 (0-0.9); EOSINOPHILS % (AUTO) 2.5 % (0-6); HEMATOCRIT 41.7 % (42.0-52.0); HEMOGLOBIN 13.8 g/dl (14.0-17.9); LYMPHOCYTES # (AUTO) 2.2 X10'3 (1.1-4.8); LYMPHOCYTES % (AUTO) 30.6 % (21-51); MEAN CORPUSCULAR HEMOGLOBIN 31.8 PG (27.0-31.0); MEAN CORPUSCULAR VOLUME 96.4 FL (78-98); MEAN PLATELET VOLUME 8.9 FL (7.4-10.4); MONOCYTES # (AUTO) 0.6 X10'3 (0-0.9); MONOCYTES % (AUTO) 7.9 % (2-12); NEUTROPHILS # (AUTO) 4.1 X10'3 (1.8-7.7); PLATELET COUNT 238 X10'3 (140-440); RED BLOOD COUNT 4.33 X10'6 (4.70-6.10); RED CELL DISTRIBUTION WIDTH 14.6 % (11.5-14.5); WHITE BLOOD COUNT 7.1 X10'3 (4.5-11.0)
[2020-02-13 14:57] LABS: ALANINE AMINOTRANSFERASE 21 U/L (12-78); ALBUMIN 3.3 G/DL (3.4-5.0); ALBUMIN/GLOBULIN RATIO 0.9 (1.1-1.5); ALKALINE PHOSPHATASE 93 IU/L (46-116); ANION GAP 12 (8-16); ASPARTATE AMINO TRANSFERASE 29 U/L (10-37); BILIRUBIN,TOTAL 0.7 MG/DL (0.1-1.0); BLOOD UREA NITROGEN 10 MG/DL (7-18); BUN/CREATININE RATIO 9.6 (5.4-32.0); CALCIUM 8.9 MG/DL (8.5-10.1); CHLORIDE 106 MMOL/L (99-107); CREATININE 1.04 MG/DL (0.60-1.10); GLUCOSE 170 MG/DL (70-104); POTASSIUM 3.7 MMOL/L (3.5-5.1); SODIUM 142 MMOL/L (135-145); TOTAL CARBON DIOXIDE 23.8 MMOL/L (24-32); eGFR 68 ML/MIN
[2020-02-13 15:03] LABS: MAGNESIUM 1.8 MG/DL (1.5-2.4)
[2020-02-13 15:21] LABS: CLARITY,URINE CLEAR (Clear); COLOR,URINE YELLOW (Yellow); GLUCOSE, URINE NEGATIVE (Neg); KETONES,URINE NEGATIVE (Neg); LEUKOCYTE ESTERASE ,URINE SMALL (Neg); NITRITES, URINE NEGATIVE (Neg); OCCULT BLOOD,URINE SMALL (Neg); PROTEIN,URINE NEGATIVE (Neg); UROBILINOGEN,URINE 0.2 E.U/dL (0.2-1.0)
[2020-02-13 15:34] LABS: UA COLLECTION TYPE NON-SPECIFIED
[2020-02-13] MEDS ORDERED: AZIT250T81 PO (15:43)
[2020-02-13 15:51] LABS: SQUAMOUS EPITHELIAL CELL,UR FEW /LPF (FEW)
[2020-02-13 15:52] LABS: BACTERIA,URINE FEW /HPF (Neg)
[2020-02-13 15:53] LABS: RBC,URINE 0-2 /HPF (0-2)
[2020-02-13 16:20] VITALS: BP 125/73
== END 2020-02-13 16:21 | disposition home or self-care (01) ==
LOC: ER 14:09
DX: R51 Headache (principal); R19.7 Diarrhea, unspecified; J01.90 Acute sinusitis, unspecified; I48.91 Unspecified atrial fibrillation; I25.10 Atherosclerotic heart disease of native coronary artery without angina pectoris; E78.00 Pure hypercholesterolemia, unspecified; I10 Essential (primary) hypertension; I25.2 Old myocardial infarction; J44.9 Chronic obstructive pulmonary disease, unspecified; E11.9 Type 2 diabetes mellitus without complications; F41.9 Anxiety disorder, unspecified; F32.9 Major depressive disorder, single episode, unspecified; Z98.890 Other specified postprocedural states; Z79.82 Long term (current) use of aspirin; Z79.2 Long term (current) use of antibiotics; Z79.899 Other long term (current) drug therapy
CPT/HCPCS: 36415; 70450; 71045; 80053; 81001; 82948; 83605; 83735; 83880; 84145; 84484; 85025; 87040; 87088; 93005; 99285; J7030

== ENCOUNTER 2020-02-15 17:36 | Emergency (ER) | payer OTHER, MEDICARE ==
[~2020-02-15] VITALS: Ht 180.3 cm; Wt 100.0 kg
[~2020-02-15 17:36] MED LIST changes: +AZIT250T81 PO
--- NOTE | 2020-02-15 18:58 | NUR ---
pt states he was here 2 days ago for similar complaint and was given prescription that he was unable to fill.
[2020-02-15] MEDS ORDERED: HYDROcodone/acetaminophen 10/325mg tab PO ONE (20:45)
[2020-02-15 21:34] VITALS: BP 146/104
[2020-02-20] MEDS ORDERED: DIAZ2TAB3 PO (14:48)
[2020-02-20] MEDS ORDERED: APIX5TAB3 PO (15:12)
== END 2020-02-15 21:30 | disposition home or self-care (01) ==
LOC: ER 17:37
DX: R51 Headache (principal); R20.0 Anesthesia of skin; I48.91 Unspecified atrial fibrillation; I25.10 Atherosclerotic heart disease of native coronary artery without angina pectoris; E78.00 Pure hypercholesterolemia, unspecified; I10 Essential (primary) hypertension; I25.2 Old myocardial infarction; J44.9 Chronic obstructive pulmonary disease, unspecified; E11.9 Type 2 diabetes mellitus without complications; F41.9 Anxiety disorder, unspecified; F32.9 Major depressive disorder, single episode, unspecified; Z98.61 Coronary angioplasty status; Z98.890 Other specified postprocedural states; Z79.82 Long term (current) use of aspirin; Z79.2 Long term (current) use of antibiotics; Z79.899 Other long term (current) drug therapy
CPT/HCPCS: 70450; 99284; 99285

== ENCOUNTER 2020-08-03 12:11 | Inpatient (IN) | payer OTHER, MEDICARE ==
[~2020-08-03] VITALS: Ht 180.3 cm; Wt 100.9 kg
[~2020-08-03 12:11] MED LIST changes: +APIX5TAB3 PO; -AZIT250T81 PO; -DABI150C PO; -DIAZ10TA4 PO; -ISOS60TA4 PO; +ISOS60TA71 PO
[2020-08-03] MEDS ORDERED: aspirin 81mg tab.chew PO ONE (12:50)
--- NOTE | 2020-08-03 13:06 | NUR ---
ferdinand [phone]
[2020-08-03 13:14] LABS: BASOPHILS # (AUTO) 0.1 X10'3 (0-0.2); EOSINOPHILS # (AUTO) 0.3 X10'3 (0-0.9); EOSINOPHILS % (AUTO) 2.6 % (0-6); HEMATOCRIT 41.3 % (42.0-52.0); LYMPHOCYTES # (AUTO) 1.7 X10'3 (1.1-4.8); LYMPHOCYTES % (AUTO) 15.8 % (21-51); MEAN CORPUSCULAR HEMOGLOBIN 31.5 PG (27.0-31.0); MEAN CORPUSCULAR HGB CONC 33.8 g/dL (33.0-36.5); MEAN CORPUSCULAR VOLUME 93.4 FL (78-98); MEAN PLATELET VOLUME 8.7 FL (7.4-10.4); MONOCYTES # (AUTO) 0.9 X10'3 (0-0.9); MONOCYTES % (AUTO) 8.4 % (2-12); NEUTROPHILS # (AUTO) 7.6 X10'3 (1.8-7.7); NEUTROPHILS % (AUTO) 72.2 % (42-75); PLATELET COUNT 214 X10'3 (140-440); RED BLOOD COUNT 4.43 X10'6 (4.70-6.10); WHITE BLOOD COUNT 10.6 X10'3 (4.5-11.0)
[2020-08-03 13:28] LABS: ALANINE AMINOTRANSFERASE 17 U/L (12-78); ALBUMIN 3.3 G/DL (3.4-5.0); ALBUMIN/GLOBULIN RATIO 0.8 (1.1-1.5); ALKALINE PHOSPHATASE 104 IU/L (46-116); ANION GAP 11 (8-16); ASPARTATE AMINO TRANSFERASE 24 U/L (10-37); BILIRUBIN,TOTAL 0.9 MG/DL (0.1-1.0); BLOOD UREA NITROGEN 10 MG/DL (7-18); BUN/CREATININE RATIO 11.2 (5.4-32.0); CALCIUM 8.9 MG/DL (8.5-10.1); CHLORIDE 105 MMOL/L (99-107); CREATININE 0.89 MG/DL (0.60-1.10); GLUCOSE 137 MG/DL (70-104); POTASSIUM 3.9 MMOL/L (3.5-5.1); SODIUM 142 MMOL/L (135-145); TOTAL CARBON DIOXIDE 26.1 MMOL/L (24-32); TOTAL PROTEIN 7.4 G/DL (6.4-8.2); eGFR 81 ML/MIN
[2020-08-03] MEDS ORDERED: acetaminophen 325mg tablet PO PRN ×2 (15:20)
[2020-08-03] MEDS ORDERED: regadenoson 0.4mg/5ml syringe IV PRN (15:20)
[2020-08-03] MEDS ORDERED: ondansetron/PF 4mg/2ml inj IV PRN (15:20)
[2020-08-03] MEDS ORDERED: aminophylline 250mg/10ml inj. IV PRN (15:20)
[2020-08-03] MEDS ORDERED: potassium Cl 20 mEq SR tablet PO PRN ×2 (15:20)
[2020-08-03] MEDS ORDERED: nitroGLYCERIN 0.4mg SUBLingual tab SL PRN (15:20)
[2020-08-03] MEDS ORDERED: potassium Cl 40MEQ/1/2NS 520ml 520 ML IV PRN ×2 (15:20)
[2020-08-03] MEDS ORDERED: normal saline 1000ml 1,000 ML IV SCH (15:20)
[2020-08-03] MEDS ORDERED: magnesium Cl slow-release 64mg tablet PO PRN (15:20)
[2020-08-03] MEDS ORDERED: magnesium 4gm in 100ml NS 100 ML IV PRN (15:20)
[2020-08-03] MEDS ORDERED: magnesium 2GM in 50ml NS 50 ML IV PRN (15:20)
[2020-08-03] MEDS ORDERED: morphine 2 MG/ML inj. syringe IV PRN (15:20)
[2020-08-03] MEDS ORDERED: metoprolol tartrate 1mg/ml inj IV PRN (15:20)
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
[2020-08-03] MEDS ORDERED: POTA2TAB6 PO (16:24)
[2020-08-03] MEDS ORDERED: MAGN250T11 PO (16:24)
[2020-08-03] MEDS ORDERED: NITR0.4T51 SL (16:24)
[2020-08-03] MEDS ORDERED: CETI10TA15 PO (16:24)
[2020-08-03] MEDS ORDERED: HYDR-3972 PO (16:24)
[2020-08-03] MEDS ORDERED: CHOL20002 PO (16:24)
[2020-08-03] MEDS ORDERED: VITA1CAP19 PO (16:24)
[2020-08-03] MEDS: pantoprazole 40mg Tablet.DR PO SCH (16:32)
[2020-08-03] MEDS ORDERED: APIX5TAB3 PO (16:49)
[2020-08-03] MEDS: HYDROcodone/acetaminophen 5mg/325mg tablet PO PRN ×2 (17:43→23:34)
[2020-08-03] MEDS: apixaban 5mg tablet PO SCH (18:43)
[2020-08-03] MEDS ORDERED: heparin, porcine 5000 units/ml vial SQ SCH (20:00)
[2020-08-03] MEDS: docusate sod 100mg capsule PO SCH (20:00)
[2020-08-03] MEDS ORDERED: K and/or MAG REPLACEMENT MC SCH (20:00)
[2020-08-03] MEDS ORDERED: temazepam 15mg capsule PO PRN (21:00)
[2020-08-03] MEDS ORDERED: donepezil 5mg tablet PO SCH (21:00)
[2020-08-03 23:48] VITALS: BP 113/63
[2020-08-04] VITALS (11 sets, daily range): BP systolic 110–144; BP diastolic 64–93
[2020-08-04 06:02] LABS: BASOPHILS # (AUTO) 0.1 X10'3 (0-0.2); BASOPHILS % (AUTO) 0.6 % (0-1); EOSINOPHILS # (AUTO) 0.5 X10'3 (0-0.9); EOSINOPHILS % (AUTO) 5.8 % (0-6); HEMATOCRIT 38.7 % (42.0-52.0); HEMOGLOBIN 12.8 g/dl (14.0-17.9); LYMPHOCYTES # (AUTO) 2.6 X10'3 (1.1-4.8); LYMPHOCYTES % (AUTO) 28.2 % (21-51); MEAN CORPUSCULAR HEMOGLOBIN 31.1 PG (27.0-31.0); MEAN CORPUSCULAR HGB CONC 33.1 g/dL (33.0-36.5); MEAN CORPUSCULAR VOLUME 93.8 FL (78-98); MONOCYTES # (AUTO) 0.9 X10'3 (0-0.9); MONOCYTES % (AUTO) 10.2 % (2-12); NEUTROPHILS % (AUTO) 55.2 % (42-75); PLATELET COUNT 208 X10'3 (140-440); RED BLOOD COUNT 4.13 X10'6 (4.70-6.10); RED CELL DISTRIBUTION WIDTH 16.3 % (11.5-14.5); WHITE BLOOD COUNT 9.1 X10'3 (4.5-11.0)
[2020-08-04 06:16] LABS: ALANINE AMINOTRANSFERASE 18 U/L (12-78); ALBUMIN/GLOBULIN RATIO 0.8 (1.1-1.5); ALKALINE PHOSPHATASE 95 IU/L (46-116); ANION GAP 6 (8-16); ASPARTATE AMINO TRANSFERASE 20 U/L (10-37); BILIRUBIN,TOTAL 0.8 MG/DL (0.1-1.0); BLOOD UREA NITROGEN 13 MG/DL (7-18); BUN/CREATININE RATIO 14.8 (5.4-32.0); CALCIUM 8.7 MG/DL (8.5-10.1); CHLORIDE 105 MMOL/L (99-107); CREATININE 0.88 MG/DL (0.60-1.10); GLUCOSE 102 MG/DL (70-104); SODIUM 139 MMOL/L (135-145); TOTAL CARBON DIOXIDE 27.9 MMOL/L (24-32); TOTAL PROTEIN 6.9 G/DL (6.4-8.2); eGFR 82 ML/MIN
[2020-08-04 06:19] LABS: CHOL/HDL RATIO 2.3 (0.00-4.99); CHOLESTEROL 108 MG/DL (0-200); HDL CHOLESTEROL 48 MG/DL (35-60); LDL CHOLESTEROL 48 MG/DL (50-100); MAGNESIUM 2.3 MG/DL (1.5-2.4); TRIGLYCERIDES 73 MG/DL (20-135)
[2020-08-04] MEDS: pantoprazole 40mg Tablet.DR PO SCH ×2 (07:30→15:54)
[2020-08-04] MEDS ORDERED: aspirin 81mg tablet.DR PO SCH (08:00)
[2020-08-04] MEDS ORDERED: folic acid 1mg tablet PO SCH (08:00)
[2020-08-04] MEDS ORDERED: isosorbide mononitrate 30mg tab.SR.24H PO SCH (08:00)
[2020-08-04] MEDS ORDERED: magnesium oxide 400mg tablet PO SCH (08:00)
[2020-08-04] MEDS ORDERED: tamsulosin 0.4mg capsule PO SCH (08:00)
[2020-08-04] MEDS ORDERED: atorvastatin 20mg tablet PO SCH (08:00)
[2020-08-04] MEDS ORDERED: atenolol 25mg tablet PO SCH (08:00)
[2020-08-04] MEDS: docusate sod 100mg capsule PO SCH (11:38)
[2020-08-04] MEDS: mesalamine 1.2gm ER tablet PO SCH ×2 (11:46→15:55)
[2020-08-04] MEDS: apixaban 5mg tablet PO SCH (11:50)
[2020-08-04] MEDS: HYDROcodone/acetaminophen 5mg/325mg tablet PO PRN (15:45)
--- NOTE | 2020-08-04 16:00 | NUR ---
DISCHARGE ORDERS OBTAINED. PT HAS REMAINED STABLE. VSS IV DISCONTINUED. NO S/S OF COMPLICATIONS CATH INTACT AND PT TOLERATED WELL. DISCHARGE INSTRUCTIONS GIVEN PT STATED UNDERSTANDING. ALL BELONGINGS ACCOUNTED FOR PT WAS TAKEN VIA WHEELCHAIR TO LOBBY TO PRIVATE VEHICLE.
== END 2020-08-04 17:43 | disposition home or self-care (01) | DRG 313 ==
LOC: ER 12:11 → ED HOLD 15:16 → EDBEDREQ 21:30 → EDBEDREQTM 22:58 → MED 3N 23:26
PROVIDERS: ADMIT Internal Medicine; ATTEND Internal Medicine
PROC: 4A02XM4 Measurement of Cardiac Total Activity, External Approach (ICD-10-PCS; principal; 2020-08-03)
PROC: 3E073KZ Introduction of Other Diagnostic Substance into Coronary Artery, Percutaneous Approach (ICD-10-PCS; 2020-08-03)
DX: R07.89 Other chest pain (principal); E11.9 Type 2 diabetes mellitus without complications; E78.00 Pure hypercholesterolemia, unspecified; I05.0 Rheumatic mitral stenosis; I10 Essential (primary) hypertension; I25.10 Atherosclerotic heart disease of native coronary artery without angina pectoris; F32.9 Major depressive disorder, single episode, unspecified; F03.90 Unspecified dementia, unspecified severity, without behavioral disturbance, psychotic disturbance, mood disturbance, and anxiety; F41.9 Anxiety disorder, unspecified; N28.9 Disorder of kidney and ureter, unspecified; I27.20 Pulmonary hypertension, unspecified; I48.91 Unspecified atrial fibrillation; J44.9 Chronic obstructive pulmonary disease, unspecified; I25.2 Old myocardial infarction; Z79.01 Long term (current) use of anticoagulants; Z87.891 Personal history of nicotine dependence; Z95.5 Presence of coronary angioplasty implant and graft; Z80.0 Family history of malignant neoplasm of digestive organs; Z81.8 Family history of other mental and behavioral disorders
CPT/HCPCS: 36415; 71045; 78452; 80053; 80061; 83735; 84484; 85025; 87081; 93005; 93017; 93306; 93308; 99285; A9500; G0378; J2785; J7030

== ENCOUNTER 2021-04-09 20:04 | Emergency (ER) | payer OTHER, MEDICARE ==
[~2021-04-09 20:04] MED LIST changes: +CETI10TA15 PO; +CHOL20002 PO; +HYDR-3972 PO; -LOPE2CAP PO; +MAGN250T11 PO; +NITR0.4T51 SL; +POTA2TAB6 PO; -TIOT4MIS3 INH; +VITA1CAP19 PO
--- NOTE | 2021-04-09 20:27 | NUR ---
Arrived for level 1 with onset at 1900 this evening pt developed difficulty speaking to and had some vision changes while watching TV. Pt describes seeing 2 screens. Pt states was feeling alot better when EMS arrived and currently is back to baseling. NIH of 1, slurred speech, edentulous. H/O prior stroke, afib (on Eliquis). cardiac stenting, htn. VSS with BP 110/69, afib with HR 78, sats 96% on RA, RR of 25. 2100 Tele neuro exam completed with Dr Roy. Possible discharge if CT negative and lab work unremarkable.
[2021-04-09 21:30] LABS: BASOPHILS # (AUTO) 0.1 X10'3 (0-0.2); EOSINOPHILS # (AUTO) 0.3 X10'3 (0-0.9); EOSINOPHILS % (AUTO) 3.8 % (0-6); HEMATOCRIT 39.9 % (42.0-52.0); HEMOGLOBIN 13.3 g/dl (14.0-17.9); LYMPHOCYTES # (AUTO) 3.1 X10'3 (1.1-4.8); LYMPHOCYTES % (AUTO) 35.9 % (21-51); MEAN CORPUSCULAR HEMOGLOBIN 31.3 PG (27.0-31.0); MEAN CORPUSCULAR HGB CONC 33.2 g/dL (33.0-36.5); MEAN CORPUSCULAR VOLUME 94.2 FL (78-98); MEAN PLATELET VOLUME 8.6 FL (7.4-10.4); MONOCYTES # (AUTO) 0.7 X10'3 (0-0.9); MONOCYTES % (AUTO) 8.5 % (2-12); NEUTROPHILS # (AUTO) 4.4 X10'3 (1.8-7.7); NEUTROPHILS % (AUTO) 50.8 % (42-75); PLATELET COUNT 225 X10'3 (140-440); RED BLOOD COUNT 4.24 X10'6 (4.70-6.10); RED CELL DISTRIBUTION WIDTH 15.5 % (11.5-14.5); WHITE BLOOD COUNT 8.8 X10'3 (4.5-11.0)
[2021-04-09 21:42] LABS: PARTIAL THROMBOPLASTIN TIME 29 SECONDS (22-32)
[2021-04-09 21:43] LABS: ALANINE AMINOTRANSFERASE 19 U/L (12-78); ALBUMIN 3.1 G/DL (3.4-5.0); ALBUMIN/GLOBULIN RATIO 0.8 (1.1-1.5); ALKALINE PHOSPHATASE 116 IU/L (46-116); ANION GAP 13 (8-16); ASPARTATE AMINO TRANSFERASE 31 U/L (10-37); BILIRUBIN,TOTAL 0.4 MG/DL (0.1-1.0); BLOOD UREA NITROGEN 11 MG/DL (7-18); BUN/CREATININE RATIO 11.6 (5.4-32.0); CHLORIDE 107 MMOL/L (99-107); CREATININE 0.95 MG/DL (0.60-1.10); GLUCOSE 132 MG/DL (70-104); POTASSIUM 3.8 MMOL/L (3.5-5.1); SODIUM 143 MMOL/L (135-145); TOTAL CARBON DIOXIDE 22.9 MMOL/L (24-32); TOTAL PROTEIN 6.8 G/DL (6.4-8.2); eGFR 75 ML/MIN
[2021-04-09 22:01] LABS: CLARITY,URINE CLEAR (Clear); COLOR,URINE YELLOW (Yellow); UA COLLECTION TYPE NON-SPECIFIED
[2021-04-09 22:02] LABS: GLUCOSE, URINE NEGATIVE (Neg); KETONES,URINE NEGATIVE (Neg); LEUKOCYTE ESTERASE ,URINE NEGATIVE (Neg); NITRITES, URINE NEGATIVE (Neg); OCCULT BLOOD,URINE NEGATIVE (Neg); PROTEIN,URINE NEGATIVE (Neg); UROBILINOGEN,URINE 0.2 E.U/dL (0.2-1.0)
== END 2021-04-09 23:07 | disposition home or self-care (01) ==
LOC: ER 20:05
DX: G45.9 Transient cerebral ischemic attack, unspecified (principal); R47.81 Slurred speech; I48.91 Unspecified atrial fibrillation; I25.10 Atherosclerotic heart disease of native coronary artery without angina pectoris; E78.00 Pure hypercholesterolemia, unspecified; I10 Essential (primary) hypertension; I25.2 Old myocardial infarction; J44.9 Chronic obstructive pulmonary disease, unspecified; E11.9 Type 2 diabetes mellitus without complications; F41.9 Anxiety disorder, unspecified; F32.9 Major depressive disorder, single episode, unspecified; Z86.73 Personal history of transient ischemic attack (TIA), and cerebral infarction without residual deficits; Z98.890 Other specified postprocedural states; Z79.82 Long term (current) use of aspirin; Z79.899 Other long term (current) drug therapy
CPT/HCPCS: 36415; 70450; 71045; 80053; 81003; 85025; 85610; 85730; 86885; 86900; 86901; 93005; 99285

== ENCOUNTER 2021-08-21 00:04 | Emergency (ER) | payer OTHER, MEDICARE ==
[~2021-08-21] VITALS: Ht 180.3 cm; Wt 100.0 kg
[2021-08-21 00:22] VITALS: BP 116/65
== END 2021-08-21 01:38 | disposition home or self-care (01) ==
LOC: ER 00:04
DX: G89.29 Other chronic pain (principal); M79.604 Pain in right leg; I48.91 Unspecified atrial fibrillation; I25.10 Atherosclerotic heart disease of native coronary artery without angina pectoris; E78.00 Pure hypercholesterolemia, unspecified; I10 Essential (primary) hypertension; I25.2 Old myocardial infarction; J44.9 Chronic obstructive pulmonary disease, unspecified; E11.9 Type 2 diabetes mellitus without complications; Z86.72 Personal history of thrombophlebitis; Z95.5 Presence of coronary angioplasty implant and graft; Z79.82 Long term (current) use of aspirin; Z79.899 Other long term (current) drug therapy
CPT/HCPCS: 99283

== ENCOUNTER 2022-02-25 16:20 | Emergency (ER) | payer OTHER, MEDICARE ==
[~2022-02-25] VITALS: Ht 180.3 cm; Wt 86.0 kg
[2022-02-25] MEDS ORDERED: normal saline 1000ml 1,000 ML IV ONE (16:30)
[2022-02-25 16:47] LABS: BASOPHILS # (AUTO) 0.1 X10'3 (0-0.2); BASOPHILS % (AUTO) 0.9 % (0-1); EOSINOPHILS # (AUTO) 0.4 X10'3 (0-0.9); EOSINOPHILS % (AUTO) 5.6 % (0-6); HEMOGLOBIN 12.5 g/dl (14.0-17.9); LYMPHOCYTES # (AUTO) 2.9 X10'3 (1.1-4.8); LYMPHOCYTES % (AUTO) 38.7 % (21-51); MEAN CORPUSCULAR HEMOGLOBIN 30.3 PG (27.0-31.0); MEAN CORPUSCULAR HGB CONC 32.9 g/dL (33.0-36.5); MEAN CORPUSCULAR VOLUME 92.1 FL (78-98); MONOCYTES # (AUTO) 0.7 X10'3 (0-0.9); MONOCYTES % (AUTO) 8.8 % (2-12); NEUTROPHILS # (AUTO) 3.4 X10'3 (1.8-7.7); PLATELET COUNT 228 X10'3 (140-440); RED BLOOD COUNT 4.13 X10'6 (4.70-6.10); RED CELL DISTRIBUTION WIDTH 17.6 % (11.5-14.5); WHITE BLOOD COUNT 7.5 X10'3 (4.5-11.0)
[2022-02-25 16:59] LABS: D-DIMER 0.59 MG/L FEU (0-0.50)
[2022-02-25] MEDS ORDERED: carvedilol 6.25mg tablet PO SCH (17:00)
[2022-02-25] MEDS ORDERED: carvedilol 6.25mg tablet PO ONE (17:00)
[2022-02-25 17:02] LABS: ALANINE AMINOTRANSFERASE 17 U/L (12-78); ALBUMIN 3.1 G/DL (3.4-5.0); ALBUMIN/GLOBULIN RATIO 0.9 (1.1-1.5); ALKALINE PHOSPHATASE 111 IU/L (46-116); ANION GAP 9 (8-16); ASPARTATE AMINO TRANSFERASE 21 U/L (10-37); BILIRUBIN,TOTAL 0.4 MG/DL (0.1-1.0); BLOOD UREA NITROGEN 9 MG/DL (7-18); BUN/CREATININE RATIO 11.8 (5.4-32.0); CALCIUM 8.4 MG/DL (8.5-10.1); CHLORIDE 108 MMOL/L (99-107); CREATININE 0.76 MG/DL (0.60-1.10); GLUCOSE 119 MG/DL (70-104); POTASSIUM 3.7 MMOL/L (3.5-5.1); SODIUM 142 MMOL/L (135-145); TOTAL CARBON DIOXIDE 24.8 MMOL/L (24-32); TOTAL PROTEIN 6.5 G/DL (6.4-8.2); eGFR > 90 ML/MIN
[2022-02-25 17:10] LABS: C-REACTIVE PROTEIN 0.38 MG/DL (0.0-0.5); MAGNESIUM 1.7 MG/DL (1.5-2.4)
[2022-02-25 17:13] LABS: APTT 29 SECONDS (22-32)
[2022-02-25 19:05] VITALS: BP 108/72
== END 2022-02-25 19:14 | disposition home or self-care (01) ==
LOC: ER 16:21
DX: R07.89 Other chest pain (principal); I11.9 Hypertensive heart disease without heart failure; E78.00 Pure hypercholesterolemia, unspecified; J44.9 Chronic obstructive pulmonary disease, unspecified; E11.9 Type 2 diabetes mellitus without complications; F41.9 Anxiety disorder, unspecified; F32.A Depression, unspecified; Z79.899 Other long term (current) drug therapy; Z79.82 Long term (current) use of aspirin; Z79.84 Long term (current) use of oral hypoglycemic drugs
CPT/HCPCS: 36415; 71045; 80053; 83735; 83880; 84484; 85025; 85379; 85610; 85730; 86140; 93005; 96360; 99285; J7030

== ENCOUNTER 2022-11-08 13:30 | Emergency (ER) | payer OTHER, MEDICARE ==
[~2022-11-08] VITALS: Ht 180.3 cm; Wt 72.7 kg
[~2022-11-08 13:30] MED LIST changes: +ALBU6.7H14 INH; +AREDS EYE PO; -CETI10TA15 PO; -CHOL20002 PO; -DOCU100C41 PO; -DONE10TA7 PO; -ISOS60TA71 PO; -MAGN250T11 PO; -MESA1.2T PO; -MULT-1085 PO; +POTA-366 PO; -POTA2TAB6 PO; +TIOT4MIS3 PO
[2022-11-08 14:19] VITALS: BP 103/57
--- NOTE | 2022-11-08 15:16 | NUR ---
pts visitor has inquired twice at the registration window about other patients that arrived after him being brought back before him. The ER process is explained to her and she is made aware that are 2 sides of the ER and that he is waiting for a main ER bed. shortly after being told this the patient developed chest pain. He is taken to rm 19 and an EKG is being done as well as updated VS and labs.
[2022-11-08 15:51] LABS: BASOPHILS # (AUTO) 0.1 X10'3 (0-0.2); BASOPHILS % (AUTO) 0.9 % (0-1); EOSINOPHILS # (AUTO) 0.2 X10'3 (0-0.9); EOSINOPHILS % (AUTO) 2.5 % (0-6); HEMATOCRIT 33.2 % (42.0-52.0); HEMOGLOBIN 11.2 g/dl (14.0-17.9); LYMPHOCYTES # (AUTO) 2.2 X10'3 (1.1-4.8); LYMPHOCYTES % (AUTO) 22.5 % (21-51); MEAN CORPUSCULAR HEMOGLOBIN 31.9 PG (27.0-31.0); MEAN CORPUSCULAR HGB CONC 33.8 g/dL (33.0-36.5); MEAN CORPUSCULAR VOLUME 94.3 FL (78-98); MEAN PLATELET VOLUME 7.8 FL (7.4-10.4); MONOCYTES # (AUTO) 0.8 X10'3 (0-0.9); MONOCYTES % (AUTO) 8.5 % (2-12); NEUTROPHILS # (AUTO) 6.4 X10'3 (1.8-7.7); NEUTROPHILS % (AUTO) 65.6 % (42-75); PLATELET COUNT 304 X10'3 (140-440); RED BLOOD COUNT 3.52 X10'6 (4.70-6.10); RED CELL DISTRIBUTION WIDTH 15.6 % (11.5-14.5); WHITE BLOOD COUNT 9.7 X10'3 (4.5-11.0)
[2022-11-08 16:09] LABS: ALANINE AMINOTRANSFERASE 39 U/L (12-78); ALBUMIN 3.3 G/DL (3.4-5.0); ALBUMIN/GLOBULIN RATIO 0.9 (1.1-1.5); ALKALINE PHOSPHATASE 140 IU/L (46-116); ANION GAP 7 (8-16); ASPARTATE AMINO TRANSFERASE 29 U/L (10-37); BILIRUBIN,TOTAL 0.4 MG/DL (0.1-1.0); BLOOD UREA NITROGEN 18 MG/DL (7-18); CALCIUM 8.8 MG/DL (8.5-10.1); CHLORIDE 101 MMOL/L (99-107); CREATININE 0.82 MG/DL (0.60-1.10); GLUCOSE 125 MG/DL (70-104); POTASSIUM 4.2 MMOL/L (3.5-5.1); SODIUM 134 MMOL/L (135-145); TOTAL CARBON DIOXIDE 26.5 MMOL/L (24-32); TOTAL PROTEIN 7.1 G/DL (6.4-8.2); eGFR 89 ML/MIN
== END 2022-11-08 19:18 | disposition left against medical advice (07) ==
LOC: ER 13:31
DX: R31.9 Hematuria, unspecified (principal); Z53.21 Procedure and treatment not carried out due to patient leaving prior to being seen by health care provider
CPT/HCPCS: 36415; 80053; 83880; 84484; 85025; 93005; 99281

== ENCOUNTER 2023-01-16 07:53 | Emergency (ER) | payer OTHER, MEDICARE ==
[~2023-01-16] VITALS: Ht 180.3 cm; Wt 180.0 kg
[2023-01-16 07:57] VITALS: TEMP 98.4
[2023-01-16 08:36] LABS: BASOPHILS # (AUTO) 0.1 X10'3 (0-0.2); BASOPHILS % (AUTO) 0.8 % (0-1); EOSINOPHILS # (AUTO) 0.4 X10'3 (0-0.9); EOSINOPHILS % (AUTO) 5.9 % (0-6); HEMATOCRIT 36.6 % (42.0-52.0); HEMOGLOBIN 11.9 g/dl (14.0-17.9); LYMPHOCYTES # (AUTO) 2.2 X10'3 (1.1-4.8); LYMPHOCYTES % (AUTO) 29.9 % (21-51); MEAN CORPUSCULAR HEMOGLOBIN 30.7 PG (27.0-31.0); MEAN CORPUSCULAR HGB CONC 32.5 g/dL (33.0-36.5); MEAN CORPUSCULAR VOLUME 94.6 FL (78-98); MONOCYTES # (AUTO) 0.8 X10'3 (0-0.9); MONOCYTES % (AUTO) 10.4 % (2-12); NEUTROPHILS # (AUTO) 3.9 X10'3 (1.8-7.7); PLATELET COUNT 264 X10'3 (140-440); RED BLOOD COUNT 3.87 X10'6 (4.70-6.10); RED CELL DISTRIBUTION WIDTH 17.6 % (11.5-14.5); WHITE BLOOD COUNT 7.4 X10'3 (4.5-11.0)
--- NOTE | 2023-01-16 08:40 | NUR ---
RN CONFIRMED WITH PT THAT PT HAS HX OF DEMENTIA AND NKDA.
--- NOTE | 2023-01-16 08:42 | NUR ---
RN PAGED US THAT ORD HAS BEEN CORRECTED AND TO COMPLETE US OF LLE.
[2023-01-16 08:48] LABS: APTT 33 SECONDS (22-32)
[2023-01-16 08:50] LABS: ALANINE AMINOTRANSFERASE 31 U/L (12-78); ALBUMIN 3.1 G/DL (3.4-5.0); ALBUMIN/GLOBULIN RATIO 0.7 (1.1-1.5); ALKALINE PHOSPHATASE 135 IU/L (46-116); ANION GAP 9 (8-16); ASPARTATE AMINO TRANSFERASE 32 U/L (10-37); BILIRUBIN,TOTAL 0.4 MG/DL (0.1-1.0); BLOOD UREA NITROGEN 12 MG/DL (7-18); BUN/CREATININE RATIO 14.8 (10.0-20.0); CALCIUM 9.3 MG/DL (8.5-10.1); CHLORIDE 103 MMOL/L (99-107); CREATININE 0.81 MG/DL (0.60-1.10); GLUCOSE 103 MG/DL (70-104); POTASSIUM 4.2 MMOL/L (3.5-5.1); SODIUM 141 MMOL/L (135-145); TOTAL CARBON DIOXIDE 28.6 MMOL/L (24-32); TOTAL PROTEIN 7.4 G/DL (6.4-8.2); eGFR 90 ML/MIN
[2023-01-16 08:51] LABS: ACETAMINOPHEN < 2.0 UG/ML (10-30)
--- NOTE | 2023-01-16 09:56 | NUR ---
PER DR RAND PT IS READY FOR DISCHARGE. RN CALLED PT AJIT AND SHE WILL HAVE PT MARIVEL DE JESUS [phone] COME PICK PT UP. RN CALLED NEAL AND SHE WILL HAVE SOMEONE COME TO WATCH HER KIDS AND THEN SHE WILL COME PICK PT UP. NEAL REQ TO CALL US BACK WITH ETA. RN NOTIFIED CHARGE RC MARRERO.
[2023-01-16 10:03] VITALS: BP 147/71; PULSE 100; RESP 17; O2SAT 98
== END 2023-01-16 10:36 | disposition home or self-care (01) ==
LOC: ER 07:54
DX: R53.1 Weakness (principal); E78.00 Pure hypercholesterolemia, unspecified; I10 Essential (primary) hypertension; J44.9 Chronic obstructive pulmonary disease, unspecified; K21.9 Gastro-esophageal reflux disease without esophagitis; E11.9 Type 2 diabetes mellitus without complications; Z79.899 Other long term (current) drug therapy; Z79.82 Long term (current) use of aspirin; Z98.890 Other specified postprocedural states
CPT/HCPCS: 36415; 70450; 71045; 80053; 80329; 82948; 85025; 85610; 85730; 93005; 93971; 99285

== ENCOUNTER 2023-08-18 07:19 | Emergency (ER) | payer OTHER, MEDICARE ==
[~2023-08-18] VITALS: Ht 180.3 cm; Wt 87.0 kg
[2023-08-18 07:23] VITALS: TEMP 97.9
[2023-08-18] MEDS: ondansetron/PF 4mg/2ml inj IV ONE (08:09)
[2023-08-18] MEDS: morphine 2 MG/ML inj. syringe IV PRN (08:10)
[2023-08-18 08:43] LABS: BASOPHILS # (AUTO) 0.1 X10'3 (0-0.2); BASOPHILS % (AUTO) 0.9 % (0-1); EOSINOPHILS # (AUTO) 0.3 X10'3 (0-0.9); EOSINOPHILS % (AUTO) 4.1 % (0-6); HEMATOCRIT 32.2 % (42.0-52.0); HEMOGLOBIN 10.8 g/dl (14.0-17.9); LYMPHOCYTES # (AUTO) 1.9 X10'3 (1.1-4.8); LYMPHOCYTES % (AUTO) 28.6 % (21-51); MEAN CORPUSCULAR HEMOGLOBIN 31.9 PG (27.0-31.0); MEAN CORPUSCULAR HGB CONC 33.4 g/dL (33.0-36.5); MEAN CORPUSCULAR VOLUME 95.5 FL (78-98); MEAN PLATELET VOLUME 7.7 FL (7.4-10.4); MONOCYTES # (AUTO) 0.8 X10'3 (0-0.9); MONOCYTES % (AUTO) 12.1 % (2-12); NEUTROPHILS # (AUTO) 3.7 X10'3 (1.8-7.7); NEUTROPHILS % (AUTO) 54.3 % (42-75); PLATELET COUNT 243 X10'3 (140-440); RED BLOOD COUNT 3.37 X10'6 (4.70-6.10); RED CELL DISTRIBUTION WIDTH 16.4 % (11.5-14.5); WHITE BLOOD COUNT 6.7 X10'3 (4.5-11.0)
[2023-08-18 09:17] LABS: APTT 33 SECONDS (22-32); INR 1.2 INR; PROTHROMBIN TIME 12.5 SECONDS (9.0-12.0)
[2023-08-18] MEDS ORDERED: HYDR-3965 PO (09:26)
[2023-08-18 09:47] VITALS: BP 140/73; PULSE 79; RESP 18; O2SAT 97
== END 2023-08-18 11:39 | disposition home or self-care (01) ==
LOC: ER 07:19
DX: S70.02XA Contusion of left hip, initial encounter (principal); X58.XXXA Exposure to other specified factors, initial encounter; Y93.89 Activity, other specified; Y92.89 Other specified places as the place of occurrence of the external cause; Y99.8 Other external cause status
CPT/HCPCS: 36415; 73502; 85025; 85610; 85730; 96374; 96375; 99284; J2270; J2405